=== PATIENT | female | born 1950 | race Caucasian/White ===

== ENCOUNTER → 2016-08-04 | Outpatient (REF) | payer BC ==
[~2016-08-04] MED LIST: ALBU17IN INH; BREO1INH INH; CHLO125TA PO; ESTR1TAB PO; IPRASOL4 INH; LOSA100T36 PO; MELO7.5S PO; OMEP40CA2 PO; REFR0.5D8 OU; SODI5OPD OU
[2016-08-04 18:54] LABS: CREATININE FOR GFR 1.1 MG/DL (0.55-1.02)
[2016-08-04 18:55] LABS: ALBUMIN 4.2 GM/DL (3.2-5.2); ALBUMIN/GLOBULIN RATIO 1.17 (1.00-1.93); BILIRUBIN,TOTAL 0.2 MG/DL (0.2-1.0); CALCIUM LEVEL 9.4 MG/DL (8.8-10.2); GLOMERULAR FILTRATION RATE 53.4 (>45); POTASSIUM SERUM 3.9 MEQ/L (3.5-5.1); TOTAL PROTEIN 7.8 GM/DL (6.4-8.2)
[2016-08-04 19:36] LABS: BASO % 0.2 % (0.0-1.0); EOS % 0.2 % (0.0-3.0); LARGE UNSTAINED CELL # 0.2 K/mm3 (0.0-0.4); LARGE UNSTAINED CELL % 2.5 % (0.0-4.0); LYMPH # 1.4 K/mm3 (1.5-4.5); LYMPH % 20.7 % (24.0-44.0); MEAN CORPUSCULAR HEMOGLOBIN 23.9 pg (27.0-33.0); MEAN CORPUSCULAR HGB CONC 30.3 g/dl (32.0-36.5); MEAN CORPUSCULAR VOLUME 78.9 fl (80.0-96.0); MONO # 0.4 K/mm3 (0.0-0.8); NEUTROPHILS # 4.7 K/mm3 (1.8-7.7); NEUTROPHILS % 70.4 % (36.0-66.0); PLATELET COUNT, AUTOMATED 316 k/mm3 (150-450); RED CELL DISTRIBUTION WIDTH 15.4 % (11.5-14.5)
[2016-08-04 19:37] LABS: WHITE BLOOD COUNT 6.6 K/mm3 (4.0-10.0)
== END ==
LOC: M SFHCPLAZ 11:40
PROVIDERS: ATTEND Nurse Practitioner Family
DX: D50.9 Iron deficiency anemia, unspecified (principal); K21.9 Gastro-esophageal reflux disease without esophagitis; I10 Essential (primary) hypertension

== ENCOUNTER → 2016-11-03 | Outpatient (REF) | payer OTHER ==
[2016-11-03 17:43] LABS: CALCIUM LEVEL 9.6 MG/DL (8.8-10.2); CREATININE FOR GFR 1.09 MG/DL (0.55-1.02); GLOMERULAR FILTRATION RATE 53.8 (>45); PERCENT SATURATION 5.9 % (13.2-37.4); POTASSIUM SERUM 3.6 MEQ/L (3.5-5.1)
[2016-11-03 19:00] LABS: BASO % 0.2 % (0.0-1.0); LARGE UNSTAINED CELL # 0.2 K/mm3 (0.0-0.4); LARGE UNSTAINED CELL % 2.5 % (0.0-4.0); LYMPH # 1.5 K/mm3 (1.5-4.5); LYMPH % 20.9 % (24.0-44.0); MEAN CORPUSCULAR HEMOGLOBIN 24.7 pg (27.0-33.0); MEAN CORPUSCULAR HGB CONC 31.4 g/dl (32.0-36.5); MEAN CORPUSCULAR VOLUME 78.6 fl (80.0-96.0); MONO # 0.4 K/mm3 (0.0-0.8); NEUTROPHILS # 5.1 K/mm3 (1.8-7.7); NEUTROPHILS % 71.3 % (36.0-66.0); PLATELET COUNT, AUTOMATED 312 k/mm3 (150-450); RED CELL DISTRIBUTION WIDTH 16.1 % (11.5-14.5); WHITE BLOOD COUNT 7.2 K/mm3 (4.0-10.0)
== END ==
LOC: M SFHCPLAZ 11:12
PROVIDERS: ATTEND Physician Assistant Medical
DX: D50.9 Iron deficiency anemia, unspecified (principal); I10 Essential (primary) hypertension

== ENCOUNTER → 2017-02-09 | Outpatient (REF) | payer OTHER ==
[2017-02-09 17:14] LABS: ALBUMIN/GLOBULIN RATIO 1.21 (1.00-1.93); ALKALINE PHOSPHATASE 57 U/L (45-117); ALT/SGPT 14 U/L (12-78); ANION GAP 8 MEQ/L (8-16); AST/SGOT 8 U/L (15-37); BILIRUBIN,TOTAL 0.2 MG/DL (0.2-1.0); BLOOD UREA NITROGEN 19 MG/DL (7-18); CALCIUM LEVEL 9.4 MG/DL (8.8-10.2); CARBON DIOXIDE LEVEL 25 MEQ/L (21-32); CHLORIDE LEVEL 108 MEQ/L (98-107); CHOLESTEROL LEVEL 194 MG/DL (<200); CREATININE FOR GFR 0.84 MG/DL (0.55-1.02); GLOMERULAR FILTRATION RATE > 60.0 (>45); GLUCOSE, FASTING 80 MG/DL (80-110); POTASSIUM SERUM 4.1 MEQ/L (3.5-5.1); SODIUM LEVEL 141 MEQ/L (136-145); TOTAL PROTEIN 7.3 GM/DL (6.4-8.2); TRIGLYCERIDES LEVEL 122 MG/DL (<150)
[2017-02-09 19:01] LABS: ADD MANUAL DIFFER YES; MEAN CORPUSCULAR HEMOGLOBIN 25.4 pg (27.0-33.0); MEAN CORPUSCULAR HGB CONC 31.7 g/dl (32.0-36.5); PLATELET COUNT, AUTOMATED 302 k/mm3 (150-450); RED CELL DISTRIBUTION WIDTH 15.6 % (11.5-14.5); WHITE BLOOD COUNT 5.7 K/mm3 (4.0-10.0)
[2017-02-09 23:08] LABS: ANISOCYTOSIS 1+; HYPOCHROMASIA 1+
== END ==
LOC: M SFHCPLAZ 11:50
PROVIDERS: ATTEND Nurse Practitioner Family
DX: D50.9 Iron deficiency anemia, unspecified (principal); I10 Essential (primary) hypertension

== ENCOUNTER → 2017-09-19 | Outpatient (REF) | payer MEDICARE ==
[2017-09-19 18:23] LABS: CREATININE, URINE 99.3 MG/DL
[2017-09-19 18:32] LABS: HEMATOCRIT 37.6 % (36.0-47.0); HEMOGLOBIN 11.1 g/dl (12.0-15.5); IMMATURE GRANULOCYTE % 0.2 % (0-3.0); LYMPH # 1.8 10^3/uL (1.5-4.5); LYMPH % 21.7 % (24.0-44.0); MEAN CORPUSCULAR HEMOGLOBIN 21.6 pg (27.0-33.0); MEAN CORPUSCULAR HGB CONC 29.5 g/dl (32.0-36.5); MEAN CORPUSCULAR VOLUME 73.3 fl (80.0-96.0); MONO # 0.6 10^3/uL (0.0-0.8); MONO % 7.3 % (0.0-5.0); NEUTROPHILS % 70.8 % (36.0-66.0); PLATELET COUNT, AUTOMATED 326 10^3/uL (150-450); RED BLOOD COUNT 5.13 10^6/uL (4.00-5.40); RED CELL DISTRIBUTION WIDTH 19.1 % (11.5-14.5); WHITE BLOOD COUNT 8.5 10^3/uL (4.0-10.0)
[2017-09-19 18:34] LABS: ALBUMIN 4.2 GM/DL (3.2-5.2); ALBUMIN/GLOBULIN RATIO 1.08 (1.00-1.93); ALKALINE PHOSPHATASE 84 U/L (45-117); ALT/SGPT 16 U/L (12-78); ANION GAP 9 MEQ/L (8-16); AST/SGOT 13 U/L (7-37); BILIRUBIN,TOTAL 0.2 MG/DL (0.2-1.0); BLOOD UREA NITROGEN 19 MG/DL (7-18); CALCIUM LEVEL 9.4 MG/DL (8.8-10.2); CARBON DIOXIDE LEVEL 28 MEQ/L (21-32); CHLORIDE LEVEL 102 MEQ/L (98-107); CHOLESTEROL LEVEL 232 MG/DL (<200); CHOLESTEROL RISK RATIO 4.377 (<5); CREATININE FOR GFR 0.81 MG/DL (0.55-1.30); GLOMERULAR FILTRATION RATE > 60.0 (>45); GLUCOSE, FASTING 77 MG/DL (70-100); HDL CHOLESTEROL 53 MG/DL (>40); LDL CHOLESTEROL 141.2 MG/DL (<100); NON-HDL-C 179 MG/DL; SODIUM LEVEL 139 MEQ/L (136-145); TOTAL PROTEIN 8.1 GM/DL (6.4-8.2); TRIGLYCERIDES LEVEL 189 MG/DL (<150)
[2017-09-19 18:38] LABS: IRON (FE) 27 UG/DL (50-170)
[2017-09-19 18:38] LABS: FREE T4 0.83 NG/DL (0.76-1.46); THYROID STIMULATING HORMONE 0.887 uIU/ML (0.358-3.740)
== END ==
LOC: M SFHCCLAY 12:33
DX: D50.9 Iron deficiency anemia, unspecified (principal); I10 Essential (primary) hypertension
CPT/HCPCS: 83540

== ENCOUNTER → 2018-09-13 | Outpatient (REF) | payer MEDICARE ==
[~2018-09-13] MED LIST changes: +IPRA0.00 INH; -IPRASOL4 INH; -LOSA100T36 PO; +LOSA100T50 PO
[2018-09-13 20:03] LABS: ALBUMIN 4.2 GM/DL (3.2-5.2); ALT/SGPT 12 U/L (12-78); BILIRUBIN,TOTAL 0.2 MG/DL (0.2-1.0); BLOOD UREA NITROGEN 13 MG/DL (7-18); CARBON DIOXIDE LEVEL 27 MEQ/L (21-32); CHLORIDE LEVEL 107 MEQ/L (98-107); CHOLESTEROL LEVEL 223 MG/DL (<200); CHOLESTEROL RISK RATIO 3.982 (<5); CREATININE FOR GFR 0.83 MG/DL (0.55-1.30); FREE T4 0.96 NG/DL (0.76-1.46); GLOMERULAR FILTRATION RATE > 60.0 (>45); GLUCOSE, FASTING 87 MG/DL (70-100); HDL CHOLESTEROL 56 MG/DL (>40); LDL CHOLESTEROL 139.6 MG/DL (<100); NON-HDL-C 167 MG/DL; POTASSIUM SERUM 3.8 MEQ/L (3.5-5.1); SODIUM LEVEL 139 MEQ/L (136-145); TOTAL PROTEIN 7.7 GM/DL (6.4-8.2); TRIGLYCERIDES LEVEL 137 MG/DL (<150)
[2018-09-13 20:20] LABS: BASO % 0.2 % (0.0-1.0); HEMATOCRIT 35.2 % (36.0-47.0); LYMPH % 10.6 % (24.0-44.0); MEAN CORPUSCULAR HGB CONC 28.4 g/dl (32.0-36.5); MEAN CORPUSCULAR VOLUME 70.5 fl (80.0-96.0); MONO # 0.5 10^3/uL (0.0-0.8); MONO % 5.7 % (0.0-5.0); NEUTROPHILS # 7.8 10^3/uL (1.8-7.7); NEUTROPHILS % 83.2 % (36.0-66.0); PLATELET COUNT, AUTOMATED 346 10^3/uL (150-450); RED BLOOD COUNT 4.99 10^6/uL (4.00-5.40); WHITE BLOOD COUNT 9.4 10^3/uL (4.0-10.0)
== END ==
LOC: M SFHCLERA 11:34
PROVIDERS: ATTEND Nurse Practitioner Family
DX: D50.9 Iron deficiency anemia, unspecified (principal); I10 Essential (primary) hypertension

== ENCOUNTER → 2019-11-08 | Outpatient (REF) | payer MEDICARE ==
[~2019-11-08] MED LIST changes: -OMEP40CA2 PO; +OMEP40CA97 PO
[2019-11-08 16:23] LABS: HEMATOCRIT 32.9 % (36.0-47.0); HEMOGLOBIN 9.5 g/dl (12.0-15.5); LYMPH # 1.2 10^3/uL (1.5-5.0); LYMPH % 19.2 % (24.0-44.0); MEAN CORPUSCULAR HEMOGLOBIN 20.1 pg (27.0-33.0); MEAN CORPUSCULAR HGB CONC 28.9 g/dl (32.0-36.5); MEAN CORPUSCULAR VOLUME 69.7 fl (80.0-96.0); MONO # 0.5 10^3/uL (0.0-0.8); MONO % 7.2 % (0.0-5.0); NEUTROPHILS # 4.6 10^3/uL (1.5-8.5); NEUTROPHILS % 73.4 % (36.0-66.0); PLATELET COUNT, AUTOMATED 352 10^3/uL (150-450); RED BLOOD COUNT 4.72 10^6/uL (4.00-5.40); WHITE BLOOD COUNT 6.3 10^3/uL (4.0-10.0)
[2019-11-08 16:49] LABS: ALBUMIN 3.9 GM/DL (3.2-5.2); ALT/SGPT 13 U/L (12-78); BILIRUBIN,TOTAL 0.4 MG/DL (0.2-1.0); BLOOD UREA NITROGEN 14 MG/DL (7-18); CALCIUM LEVEL 9.6 MG/DL (8.8-10.2); CARBON DIOXIDE LEVEL 24 MEQ/L (21-32); CHLORIDE LEVEL 106 MEQ/L (98-107); CHOLESTEROL LEVEL 188 MG/DL (<200); CHOLESTEROL RISK RATIO 3.298 (<5); CREATININE FOR GFR 0.74 MG/DL (0.55-1.30); FREE T4 0.94 NG/DL (0.76-1.46); GLOMERULAR FILTRATION RATE > 60.0 (>45); GLUCOSE, FASTING 94 MG/DL (70-100); HDL CHOLESTEROL 57 MG/DL (>40); IRON (FE) 14 UG/DL (50-170); LDL CHOLESTEROL 110 MG/DL (<100); NON-HDL-C 131 MG/DL; POTASSIUM SERUM 3.9 MEQ/L (3.5-5.1); SODIUM LEVEL 137 MEQ/L (136-145); THYROID STIMULATING HORMONE 0.548 uIU/ML (0.358-3.740); TOTAL PROTEIN 7.5 GM/DL (6.4-8.2); TRIGLYCERIDES LEVEL 103 MG/DL (<150)
== END ==
LOC: M SFHCLERA 13:06
PROVIDERS: ATTEND Nurse Practitioner Family
DX: K21.9 Gastro-esophageal reflux disease without esophagitis (principal); D50.9 Iron deficiency anemia, unspecified; I10 Essential (primary) hypertension; M25.551 Pain in right hip; J44.9 Chronic obstructive pulmonary disease, unspecified; R51 Headache; K59.00 Constipation, unspecified; J30.9 Allergic rhinitis, unspecified; H53.9 Unspecified visual disturbance; Z12.11 Encounter for screening for malignant neoplasm of colon; I83.813 Varicose veins of bilateral lower extremities with pain; Z13.89 Encounter for screening for other disorder

== ENCOUNTER → 2020-02-19 | Outpatient (REF) | payer MEDICARE ==
[2020-02-19 16:41] LABS: BASO % 0.1 % (0.0-1.0); HEMATOCRIT 35.5 % (36.0-47.0); HEMOGLOBIN 10.1 g/dl (12.0-15.5); LYMPH # 1.1 10^3/uL (1.5-5.0); LYMPH % 11.9 % (24.0-44.0); MEAN CORPUSCULAR HEMOGLOBIN 20.7 pg (27.0-33.0); MEAN CORPUSCULAR HGB CONC 28.5 g/dl (32.0-36.5); MEAN CORPUSCULAR VOLUME 72.7 fl (80.0-96.0); MONO # 0.7 10^3/uL (0.0-0.8); NEUTROPHILS # 7.5 10^3/uL (1.5-8.5); NEUTROPHILS % 80.5 % (36.0-66.0); PLATELET COUNT, AUTOMATED 297 10^3/uL (150-450); RED BLOOD COUNT 4.88 10^6/uL (4.00-5.40); WHITE BLOOD COUNT 9.3 10^3/uL (4.0-10.0)
[2020-02-19 17:02] LABS: ALT/SGPT 13 U/L (12-78); BILIRUBIN,TOTAL 0.2 MG/DL (0.2-1.0); BLOOD UREA NITROGEN 14 MG/DL (7-18); CALCIUM LEVEL 9.4 MG/DL (8.8-10.2); CARBON DIOXIDE LEVEL 26 MEQ/L (21-32); CHLORIDE LEVEL 106 MEQ/L (98-107); GLOMERULAR FILTRATION RATE > 60.0 (>45); GLUCOSE, FASTING 89 MG/DL (70-100); POTASSIUM SERUM 4.1 MEQ/L (3.5-5.1); SODIUM LEVEL 138 MEQ/L (136-145); TOTAL PROTEIN 7.7 GM/DL (6.4-8.2)
== END ==
LOC: M SFHCCLAY 11:13
PROVIDERS: ATTEND Nurse Practitioner Family
DX: R10.13 Epigastric pain (principal); R19.5 Other fecal abnormalities
CPT/HCPCS: 80053; 85025; G0463

== ENCOUNTER → 2021-01-15 | Outpatient (CLI) | payer MEDICARE ==
[~2021-01-15] MED LIST changes: +OMEP40CA4 PO; -OMEP40CA97 PO
[2021-01-16 19:07] LABS: ANTINUCLEAR ANTIBODIES DIRECT Negative (Negative)
== END ==
LOC: M PLALAB 10:19
PROVIDERS: ATTEND Psychiatry & Neurology Neurology
DX: R51.9 Headache, unspecified (principal)

== ENCOUNTER → 2022-01-12 | Outpatient (CLI) | payer MEDICARE ==
[~2022-01-12] MED LIST changes: +LOSA100T45 PO; -LOSA100T50 PO
== END ==
LOC: M CLY 11:33
PROVIDERS: ATTEND Nurse Practitioner Family
DX: M53.3 Sacrococcygeal disorders, not elsewhere classified (principal)

== ENCOUNTER → 2022-04-06 | Outpatient (REF) | payer MEDICARE ==
[2022-04-06 19:20] LABS: BASO % 0.2 % (0.0-1.0); HEMOGLOBIN 9.4 g/dl (12.0-15.5); LYMPH # 1.5 10^3/uL (1.5-5.0); MEAN CORPUSCULAR HEMOGLOBIN 20.5 pg (27.0-33.0); MEAN CORPUSCULAR HGB CONC 27.6 g/dl (32.0-36.5); MEAN CORPUSCULAR VOLUME 74.2 fl (80.0-96.0); MONO # 0.9 10^3/uL (0.0-0.8); MONO % 7.4 % (2.0-8.0); NEUTROPHILS # 9.3 10^3/uL (1.5-8.5); NEUTROPHILS % 79.1 % (36.0-66.0); PLATELET COUNT, AUTOMATED 355 10^3/uL (150-450); RED BLOOD COUNT 4.58 10^6/uL (4.00-5.40); WHITE BLOOD COUNT 11.7 10^3/uL (4.0-10.0)
[2022-04-06 19:50] LABS: ALBUMIN 4.2 G/DL (3.2-5.2); BILIRUBIN,TOTAL 0.2 MG/DL (0.3-1.2); CALCIUM LEVEL 9.9 MG/DL (8.3-10.6); CHOLESTEROL RISK RATIO 3.46 (<5); CREATININE FOR GFR 1.31 MG/DL (0.55-1.30); FREE T4 1.11 NG/DL (0.89-1.76); GLOMERULAR FILTRATION RATE 42.9 (>45); HDL CHOLESTEROL 52.3 MG/DL (>40); LDL CHOLESTEROL 105.3 MG/DL (<100); THYROID STIMULATING HORMONE 1.404 uIU/ML (0.55-4.78); TOTAL PROTEIN 7.3 G/DL (5.7-8.2)
[2022-04-06 19:54] LABS: CREATININE, URINE 211.1 MG/DL; MAU/CREAT RATIO 50.6 MCG/MG (0.0-30.0)
== END ==
LOC: M SFHCCLAY 13:32
PROVIDERS: ATTEND Nurse Practitioner Family
DX: I10 Essential (primary) hypertension (principal); K21.9 Gastro-esophageal reflux disease without esophagitis; J44.9 Chronic obstructive pulmonary disease, unspecified; D50.9 Iron deficiency anemia, unspecified; M25.551 Pain in right hip; R51.9 Headache, unspecified; K59.00 Constipation, unspecified; J30.9 Allergic rhinitis, unspecified; H53.9 Unspecified visual disturbance; Z12.11 Encounter for screening for malignant neoplasm of colon; I83.813 Varicose veins of bilateral lower extremities with pain; Z13.89 Encounter for screening for other disorder; M54.2 Cervicalgia

== ENCOUNTER → 2022-04-12 | Outpatient (REF) | payer MEDICARE ==
[2022-04-12 19:02] LABS: BLOOD UREA NITROGEN 14 MG/DL (9-23); CALCIUM LEVEL 9.1 MG/DL (8.3-10.6); CARBON DIOXIDE LEVEL 24 MMOL/L (20-31); CHLORIDE LEVEL 105 MMOL/L (98-107); CREATININE FOR GFR 0.87 MG/DL (0.55-1.30); GLOMERULAR FILTRATION RATE > 60.0 (>45); GLUCOSE, FASTING 92 MG/DL (74-106); POTASSIUM SERUM 4.1 MMOL/L (3.5-5.1); SODIUM LEVEL 140 MMOL/L (136-145)
== END ==
LOC: M SFHCCLAY 10:52
PROVIDERS: ATTEND Nurse Practitioner Family
DX: I10 Essential (primary) hypertension (principal)

== ENCOUNTER → 2022-04-29 | Outpatient (REF) | payer MEDICARE | LOC: M LAB REF 11:27 | PROVIDERS: ATTEND Physician Assistant Medical | DX: R19.4 Change in bowel habit (principal) ==

== ENCOUNTER → 2022-06-20 | Outpatient (CLI) | payer MEDICARE | LOC: M LABSMTC 10:30 | PROVIDERS: ATTEND Anesthesiology | DX: Z01.812 Encounter for preprocedural laboratory examination (principal); Z11.52 Encounter for screening for COVID-19 ==

== ENCOUNTER 2022-06-24 10:16 | Day surgery (SDC) | payer MEDICARE ==
[~2022-06-24] VITALS: Ht 152.4 cm; Wt 69.3 kg
[~2022-06-24 10:16] MED LIST changes: +ALBU8.5H INH; +AMIT25TA17 PO; +AMLO1TAB25 PO; +CETI-24 PO; +ECOT81TA5 PO; +FISH120016 PO; +GABA-283 PO; +LOSA50TA28 PO; +MECL-136 PO; +METO50TA7 PO; +NS 1,000 ML IV ONE; +PANT40TA29 PO; +PERF20NE2 INH; +YUPE175S IN
[2022-06-24] MEDS ORDERED: GLYCOPYRROLATE INJ 0.2 MG/ML 2 ML VIAL As Ordered ONE (11:43)
[2022-06-24] MEDS ORDERED: propofoL 200 MG/20 ML VIAL As Ordered ONE ×3 (11:43→12:21)
[2022-06-24] MEDS ORDERED: LIDOCAINE 2% 100MG/5ML SDV (FOR ANES.) As Ordered ONE (11:43)
[2022-06-24 12:55] VITALS: BP 132/94
== END 2022-06-24 13:33 | disposition home or self-care (01) ==
LOC: M OPP 10:16
PROVIDERS: ATTEND Internal Medicine Gastroenterology
DX: Q43.8 Other specified congenital malformations of intestine (principal); K64.8 Other hemorrhoids; D50.9 Iron deficiency anemia, unspecified; K44.9 Diaphragmatic hernia without obstruction or gangrene; K25.9 Gastric ulcer, unspecified as acute or chronic, without hemorrhage or perforation; K31.89 Other diseases of stomach and duodenum; Z79.51 Long term (current) use of inhaled steroids; Z79.52 Long term (current) use of systemic steroids; Z79.82 Long term (current) use of aspirin; Z79.899 Other long term (current) drug therapy; I10 Essential (primary) hypertension; E78.00 Pure hypercholesterolemia, unspecified; J44.9 Chronic obstructive pulmonary disease, unspecified; J45.909 Unspecified asthma, uncomplicated; Z86.73 Personal history of transient ischemic attack (TIA), and cerebral infarction without residual deficits; Z87.891 Personal history of nicotine dependence; Z80.1 Family history of malignant neoplasm of trachea, bronchus and lung

== ENCOUNTER → 2022-07-12 | Outpatient (CLI) | payer MEDICARE ==
[~2022-07-12] MED LIST changes: -NS 1,000 ML IV ONE
[2022-07-12 16:34] LABS: IRON (FE) 14 UG/DL (50-170)
[2022-07-12 16:35] LABS: PERCENT SATURATION 3.4 % (13.2-45.0); TOTAL IRON BINDING CAPACITY 413 UG/DL (250-425)
[2022-07-12 16:41] LABS: HEMATOCRIT 33.7 % (36.0-47.0); HEMOGLOBIN 9.5 g/dl (12.0-15.5); MEAN CORPUSCULAR HGB CONC 28.2 g/dl (32.0-36.5); MEAN CORPUSCULAR VOLUME 74.4 fl (80.0-96.0); PLATELET COUNT, AUTOMATED 283 10^3/uL (150-450); RED BLOOD COUNT 4.53 10^6/uL (4.00-5.40); WHITE BLOOD COUNT 8.4 10^3/uL (4.0-10.0)
[2022-07-12 17:17] LABS: ALBUMIN 3.9 G/DL (3.2-5.2); ALKALINE PHOSPHATASE 75 U/L (46-116); ALT/SGPT 10 U/L (7.0-40); AST/SGOT 12 U/L (<34); BILIRUBIN,TOTAL 0.3 MG/DL (0.3-1.2); BLOOD UREA NITROGEN 10 MG/DL (9-23); CALCIUM LEVEL 8.8 MG/DL (8.3-10.6); CARBON DIOXIDE LEVEL 26 MMOL/L (20-31); CHLORIDE LEVEL 105 MMOL/L (98-107); GLUCOSE, FASTING 82 MG/DL (74-106); POTASSIUM SERUM 4.5 MMOL/L (3.5-5.1); SODIUM LEVEL 138 MMOL/L (136-145); TOTAL PROTEIN 7.2 G/DL (5.7-8.2)
[2022-07-12 20:39] LABS: GLOMERULAR FILTRATION RATE > 60.0 (>45)
== END ==
LOC: M PLALAB 11:14
PROVIDERS: ATTEND Physician Assistant Medical
DX: D50.9 Iron deficiency anemia, unspecified (principal); K21.9 Gastro-esophageal reflux disease without esophagitis

== ENCOUNTER 2022-07-26 11:20 | Outpatient (CLI) | payer MEDICARE ==
[2022-07-26] MEDS ORDERED: IRON SUCROSE 25 MG in NS 23.75 ML IV ONE (11:30)
[2022-07-26] MEDS ORDERED: IRON SUCROSE 475 MG in NS 250 ML IV ONE (11:30)
== END 2022-07-26 16:35 | disposition home or self-care (01) ==
LOC: M INFU 11:20
PROVIDERS: ATTEND Nurse Practitioner Family
DX: D50.9 Iron deficiency anemia, unspecified (principal)
CPT/HCPCS: 96365; 96366; J1756

== ENCOUNTER → 2022-09-22 | Outpatient (CLI) | payer MEDICARE ==
[~2022-09-22] MED LIST changes: +E-Z-GAS II EFFERVESCENT PACKET (SODIUM BICARB./CITRIC ACID/SIMETHICONE) As Ordered ONE; +E-Z-HD 98% w/w 340GM SUSP BTL As Ordered ONE; +E-Z-PAQUE 96% w/w SUSP 176GM BTL As Ordered ONE; -LOSA100T45 PO; +LOSA100T46 PO; +PRED20TA; +SODI1SOL4 OU; -SODI5OPD OU
== END ==
LOC: M RAD 08:13
PROVIDERS: ATTEND Surgery
DX: K25.7 Chronic gastric ulcer without hemorrhage or perforation (principal); K44.9 Diaphragmatic hernia without obstruction or gangrene

== ENCOUNTER → 2023-01-12 | Outpatient (CLI) | payer MEDICARE ==
[~2023-01-12] MED LIST changes: -AMIT25TA17 PO; +AMIT25TA19 PO; -E-Z-GAS II EFFERVESCENT PACKET (SODIUM BICARB./CITRIC ACID/SIMETHICONE) As Ordered ONE; -E-Z-HD 98% w/w 340GM SUSP BTL As Ordered ONE; -E-Z-PAQUE 96% w/w SUSP 176GM BTL As Ordered ONE; -GABA-283 PO; +GABA-284 PO
== END ==
LOC: M RAD 13:10
PROVIDERS: ATTEND Internal Medicine Pulmonary Disease
DX: R06.02 Shortness of breath (principal)

== ENCOUNTER → 2023-06-27 | Outpatient (REF) | payer MEDICARE ==
[~2023-06-27] MED LIST changes: +SIME80CH6
== END ==
LOC: M LAB REF 12:24
PROVIDERS: ATTEND Physician Assistant Medical
DX: R19.7 Diarrhea, unspecified (principal); R10.812 Left upper quadrant abdominal tenderness

== ENCOUNTER → 2023-08-17 | Outpatient (CLI) | payer MEDICARE ==
[~2023-08-17] MED LIST changes: +ALBU2.5V10 INH; +SUMA50TA2 PO
== END ==
LOC: M RAD 12:02
PROVIDERS: ATTEND Physician Assistant Medical
DX: R19.7 Diarrhea, unspecified (principal)

== ENCOUNTER → 2023-08-22 | Outpatient (REF) | payer MEDICARE ==
[~2023-08-22] MED LIST changes: -ALBU2.5V10 INH; -SUMA50TA2 PO
== END ==
LOC: M LAB REF 13:10
PROVIDERS: ATTEND Physician Assistant Medical
DX: R19.7 Diarrhea, unspecified (principal)

== ENCOUNTER 2023-08-25 12:02 | Outpatient (CLI) | payer MEDICARE ==
[~2023-08-25] VITALS: Ht 152.4 cm; Wt 69.5 kg
[2023-08-25 12:20] VITALS: BP 173/99; O2SAT 97
[2023-08-25] MEDS: IRON SUCROSE 200 MG in NS 100 ML OVER 1 HR IV ONE (12:33)
[2023-08-25 13:35] VITALS: BP 195/96; O2SAT 98
== END 2023-08-25 13:40 ==
LOC: M INFU 12:02
PROVIDERS: ATTEND Nurse Practitioner
DX: D50.9 Iron deficiency anemia, unspecified (principal)
CPT/HCPCS: 96365; J1756

== ENCOUNTER 2023-09-01 09:30 | Outpatient (CLI) | payer MEDICARE ==
[2023-09-01 09:30] VITALS: BP 164/79; O2SAT 100
[2023-09-01] MEDS: IRON SUCROSE 200 MG in NS 100 ML OVER 1 HR IV ONE (09:35)
[2023-09-01 10:40] VITALS: BP 160/90; O2SAT 96
== END 2023-09-01 10:40 | disposition home or self-care (01) ==
LOC: M INFU 09:30
PROVIDERS: ATTEND Nurse Practitioner
DX: D50.9 Iron deficiency anemia, unspecified (principal)
CPT/HCPCS: 96365; J1756

== ENCOUNTER 2023-09-08 12:00 | Outpatient (CLI) | payer MEDICARE ==
[2023-09-08 11:55] VITALS: BP 160/93; O2SAT 95
[2023-09-08] MEDS: IRON SUCROSE 200 MG in NS 100 ML OVER 1 HR IV ONE (12:10)
[2023-09-08 13:20] VITALS: BP 177/76; O2SAT 100
== END 2023-09-08 13:20 | disposition home or self-care (01) ==
LOC: M INFU 12:00
PROVIDERS: ATTEND Nurse Practitioner
DX: E61.1 Iron deficiency (principal)
CPT/HCPCS: 96365; J1756

== ENCOUNTER 2023-09-15 09:50 | Outpatient (CLI) | payer MEDICARE ==
[2023-09-15 09:50] VITALS: BP 170/90; O2SAT 97
[2023-09-15] MEDS: IRON SUCROSE 200 MG in NS 100 ML OVER 1 HR IV ONE (10:01)
[2023-09-15 11:00] VITALS: BP 152/68; O2SAT 96
== END 2023-09-15 11:15 ==
LOC: M INFU 09:50
PROVIDERS: ATTEND Nurse Practitioner
DX: D50.9 Iron deficiency anemia, unspecified (principal); Z12.31 Encounter for screening mammogram for malignant neoplasm of breast
CPT/HCPCS: 77063; 77067; 96365; J1756

== ENCOUNTER → 2023-09-15 | Outpatient (CLI) | payer MEDICARE | LOC: M WHC 13:19 | PROVIDERS: ATTEND Family Medicine | DX: Z12.31 Encounter for screening mammogram for malignant neoplasm of breast (principal) ==

== ENCOUNTER → 2023-09-20 | Outpatient (CLI) | payer MEDICARE | LOC: M RAD 09:05 | PROVIDERS: ATTEND Physician Assistant Medical | DX: R10.12 Left upper quadrant pain (principal); K86.81 Exocrine pancreatic insufficiency; R19.7 Diarrhea, unspecified ==

== ENCOUNTER 2023-09-22 09:40 | Outpatient (CLI) | payer MEDICARE ==
[2023-09-22] MEDS: IRON SUCROSE 200 MG in NS 100 ML OVER 1 HR IV ONE (09:34)
[2023-09-22 09:37] VITALS: BP 171/90; O2SAT 96
[2023-09-22 10:45] VITALS: BP 151/98; O2SAT 100
== END 2023-09-22 10:45 ==
LOC: M INFU 09:40
PROVIDERS: ATTEND Nurse Practitioner
DX: D50.9 Iron deficiency anemia, unspecified (principal)
CPT/HCPCS: 96365; J1756

== ENCOUNTER → 2024-01-25 | Outpatient (CLI) | payer MEDICARE ==
[~2024-01-25] MED LIST changes: +ALBU2.5V10 INH; +SUMA50TA2 PO
[2024-01-25 18:07] LABS: CHOLESTEROL RISK RATIO 3.32 (<5); HDL CHOLESTEROL 49.6 MG/DL (>40); LDL CHOLESTEROL 90.4 MG/DL (<100); NON-HDL-C 115.4 MG/DL
== END ==
LOC: M LRY 08:56
PROVIDERS: ATTEND Physician Assistant
DX: Z13.220 Encounter for screening for lipoid disorders (principal); Z79.899 Other long term (current) drug therapy

== ENCOUNTER → 2024-02-02 | Outpatient (CLI) | payer MEDICARE | LOC: M RAD 12:10 | PROVIDERS: ATTEND Physician Assistant Medical | DX: R10.12 Left upper quadrant pain (principal); K59.00 Constipation, unspecified; R14.0 Abdominal distension (gaseous) ==

== ENCOUNTER 2024-03-09 04:07 | Inpatient (IN) | payer MEDICARE ==
[~2024-03-09] VITALS: Ht 152.4 cm; Wt 70.2 kg
[2024-03-09] VITALS (8 sets, daily range): BP systolic 144–176; BP diastolic 74–110; TEMP 97–98; O2SAT 88–94
[~2024-03-09 04:07] MED LIST changes: -SIME80CH6; +SIME80CH6 PO
[2024-03-09] MEDS: methylPREDNISolone 125MG 2ML VIAL IV ONE (04:48)
[2024-03-09 04:53] LABS: BASO % 0.1 % (0.0-1.0); HEMATOCRIT 39.5 % (36.0-47.0); HEMOGLOBIN 12.2 g/dl (12.0-15.5); LYMPH # 0.5 10^3/uL (1.5-5.0); LYMPH % 3.2 % (24.0-44.0); MEAN CORPUSCULAR HEMOGLOBIN 25.8 pg (27.0-33.0); MEAN CORPUSCULAR HGB CONC 30.9 g/dl (32.0-36.5); MEAN CORPUSCULAR VOLUME 83.5 fl (80.0-96.0); MONO # 0.1 10^3/uL (0.0-0.8); MONO % 0.9 % (2.0-8.0); NEUTROPHILS # 15.2 10^3/uL (1.5-8.5); NEUTROPHILS % 95.4 % (36.0-66.0); PLATELET COUNT, AUTOMATED 307 10^3/uL (150-450); RED BLOOD COUNT 4.73 10^6/uL (4.00-5.40); WHITE BLOOD COUNT 15.9 10^3/uL (4.0-10.0)
[2024-03-09] MEDS: LEVALBUTEROL 1.25MG 0.5ML CONCENTRATE NEB NEB ONE ×4 (04:55→08:04)
[2024-03-09 05:15] LABS: ALBUMIN 3.4 G/DL (3.2-5.2); ALKALINE PHOSPHATASE 116 U/L (46-116); ALT/SGPT 20 U/L (7.0-40); AST/SGOT 13 U/L (<34); BILIRUBIN,DIRECT < 0.1 MG/DL (<0.4); BILIRUBIN,TOTAL 0.2 MG/DL (0.3-1.2); BLOOD UREA NITROGEN 14 MG/DL (9-23); CALCIUM LEVEL 9.4 MG/DL (8.3-10.6); CARBON DIOXIDE LEVEL 22 MMOL/L (20-31); CHLORIDE LEVEL 106 MMOL/L (98-107); CREATININE FOR GFR 0.58 MG/DL (0.55-1.30); GLOMERULAR FILTRATION RATE > 60.0 (>39); GLUCOSE, FASTING 199 MG/DL (74-106); POTASSIUM SERUM 4.1 MMOL/L (3.5-5.1); SODIUM LEVEL 137 MMOL/L (136-145); TOTAL PROTEIN 6.8 G/DL (5.7-8.2)
[2024-03-09 06:51] LABS: CK-MB VALUE MASS 1.8 NG/ML (<3.6)
[2024-03-09 06:52] LABS: CPK CREATINE PHOSPHOKINASE 61 U/L (34-145); MB/CK RELATIVE INDEX 2.95 (< OR =4)
[2024-03-09] MEDS ORDERED: ISOVUE-370 76% 100ML VIAL As Ordered ONE (07:10)
[2024-03-09] MEDS ORDERED: LEVALBUTEROL 1.25MG 0.5ML CONCENTRATE NEB INH PRN (10:20)
[2024-03-09] MEDS ORDERED: IPRATROPIUM 0.02% SOLN 0.5MG 2.5ML NEB INH PRN (10:20)
[2024-03-09] MEDS ORDERED: ONDANSETRON 4MG 2ML VIAL IV PRN (10:20)
[2024-03-09] MEDS: ACETAMINOPHEN 325 MG TAB PO ONE (10:36)
[2024-03-09] MEDS: DOXYCYCLINE HYCLATE 100MG TABLET PO SCH (11:20)
[2024-03-09] MEDS: methylPREDNISolone 125MG 2ML VIAL IV SCH (11:20)
[2024-03-09] MEDS: CETIRIZINE (ZyrTEC) 10 MG TAB PO ONE (11:20)
[2024-03-09] MEDS: NS 1,000 ML IV ONE (11:20)
[2024-03-09] MEDS: guaiFENesin ER TABLET 600 MG TAB PO SCH (11:20)
[2024-03-09] MEDS: FUROSEMIDE 40MG/4ML VIAL IV ONE (11:41)
[2024-03-09] MEDS ORDERED: methylPREDNISolone 125MG 2ML VIAL IV ONE ×2 (11:45→12:00)
[2024-03-09] MEDS: LEVALBUTEROL 1.25MG 0.5ML CONCENTRATE NEB INH SCH ×3 (11:56→20:23)
[2024-03-09] MEDS: FORMOTEROL FUMARATE 20 MCG/2 ML INHALATION SOLUTION (PERFOROMIST) INH SCH (11:56)
[2024-03-09] MEDS: IPRATROPIUM 0.02% SOLN 0.5MG 2.5ML NEB INH SCH ×3 (11:56→20:23)
[2024-03-09 11:57] LABS: ABG BASE EXCESS -0.8 (-2.0-2.0); ABG O2 SATURATION 96.8 % (95.0-99.0); ABG PARTIAL PRESSURE CO2 35.6 mmHg (35.0-45.0); ABG PARTIAL PRESSURE O2 86.7 mmHg (75.0-100.0); ABG STANDARD HCO3 23.8 MMOL/L. (22.0-26.0); ABG TOTAL CO2 24.1 MMOL/L (23.0-31.0); ABG pH (ARTERIAL) 7.429 UNITS (7.350-7.450)
[2024-03-09] MEDS: GLYCOPYRROLATE INJ 0.2 MG/ML 2 ML VIAL NEB SCH (11:57)
[2024-03-09] MEDS ORDERED: NS 1,000 ML IV SCH (12:00)
[2024-03-09] MEDS ORDERED: MED REC IN PROGRESS XX SCH (12:10)
[2024-03-09] MEDS: cefTRIAXone SOD 1 GM in DEXTROSE 5% (D5W) ADV/MINI-BAG 50 ML IV SCH (12:10)
[2024-03-09 12:31] LABS: CK-MB VALUE MASS 3.3 NG/ML (<3.6); MB/CK RELATIVE INDEX 4.45 (< OR =4)
[2024-03-09] MEDS: MAG SULF 1GM/100ML (MAG RUN) 1 GM in IV 1 EA IV ONE (12:40)
[2024-03-09] MEDS ORDERED: OMEP40CA5 PO (13:15)
[2024-03-09] MEDS ORDERED: SUCR1TAB56 PO (13:15)
[2024-03-09] MEDS ORDERED: HOME MED LIST COMPLETE! XX SCH (13:15)
[2024-03-09] MEDS ORDERED: TIZA2TA PO (13:15)
[2024-03-09] MEDS ORDERED: ACET-897 PO (13:15)
[2024-03-09 17:58] LABS: ABG BASE EXCESS 0.8 (-2.0-2.0); ABG HCO3 23.9 MMOL/L (22.0-26.0); ABG O2 SATURATION 96.1 % (95.0-99.0); ABG PARTIAL PRESSURE CO2 33.4 mmHg (35.0-45.0); ABG PARTIAL PRESSURE O2 79.8 mmHg (75.0-100.0); ABG STANDARD HCO3 25.2 MMOL/L. (22.0-26.0); ABG TOTAL CO2 24.9 MMOL/L (23.0-31.0); ABG pH (ARTERIAL) 7.472 UNITS (7.350-7.450)
[2024-03-09] MEDS ORDERED: RIZATRIPTAN BENZOATE 10 MG TAB PO PRN (18:40)
[2024-03-09] MEDS: KETOROLAC 30 MG/ML 1ML VIAL IV ONE (18:54)
[2024-03-09] MEDS: METOCLOPRAMIDE INJ 10MG/2ML VIAL IV ONE (18:54)
[2024-03-10] VITALS (23 sets, daily range): BP systolic 121–145; BP diastolic 60–88; TEMP 97.2–98.6; O2SAT 93–98
[2024-03-10] MEDS: LEVALBUTEROL 1.25MG 0.5ML CONCENTRATE NEB INH PRN (04:17)
[2024-03-10] MEDS: IPRATROPIUM 0.02% SOLN 0.5MG 2.5ML NEB INH PRN (04:17)
[2024-03-10 04:34] LABS: ABG BASE EXCESS 0.6 (-2.0-2.0); ABG HCO3 24.1 MMOL/L (22.0-26.0); ABG O2 SATURATION 98.8 % (95.0-99.0); ABG PARTIAL PRESSURE O2 147.6 mmHg (75.0-100.0); ABG STANDARD HCO3 25.1 MMOL/L. (22.0-26.0); ABG TOTAL CO2 25.2 MMOL/L (23.0-31.0); ABG pH (ARTERIAL) 7.456 UNITS (7.350-7.450)
[2024-03-10 05:38] LABS: BASO % 0.1 % (0.0-1.0); HEMATOCRIT 37.8 % (36.0-47.0); LYMPH # 0.6 10^3/uL (1.5-5.0); LYMPH % 2.5 % (24.0-44.0); MEAN CORPUSCULAR HGB CONC 31.7 g/dl (32.0-36.5); MEAN CORPUSCULAR VOLUME 81.8 fl (80.0-96.0); MONO # 0.3 10^3/uL (0.0-0.8); MONO % 1.3 % (2.0-8.0); NEUTROPHILS # 23.9 10^3/uL (1.5-8.5); NEUTROPHILS % 95.1 % (36.0-66.0); PLATELET COUNT, AUTOMATED 354 10^3/uL (150-450); RED BLOOD COUNT 4.62 10^6/uL (4.00-5.40); WHITE BLOOD COUNT 25.1 10^3/uL (4.0-10.0)
[2024-03-10 06:02] LABS: BLOOD UREA NITROGEN 23 MG/DL (9-23); CALCIUM LEVEL 9.8 MG/DL (8.3-10.6); CARBON DIOXIDE LEVEL 25 MMOL/L (20-31); CHLORIDE LEVEL 101 MMOL/L (98-107); CREATININE FOR GFR 0.77 MG/DL (0.55-1.30); GLOMERULAR FILTRATION RATE > 60.0 (>39); GLUCOSE, FASTING 153 MG/DL (74-106); POTASSIUM SERUM 3.7 MMOL/L (3.5-5.1); SODIUM LEVEL 136 MMOL/L (136-145)
[2024-03-10] MEDS: CETIRIZINE (ZyrTEC) 10 MG TAB PO SCH (09:10)
[2024-03-10] MEDS: ACETAMINOPHEN 325 MG TAB PO PRN (09:10)
[2024-03-10] MEDS: METOPROLOL TART 12.5 MG PER 1/2 TAB PO SCH (12:05)
[2024-03-10] MEDS ORDERED: SUMAtriptan SUCCINATE 25 MG TAB PO SCH (12:30)
[2024-03-10] MEDS: tiZANidine 4 MG TAB PO ONE (13:24)
[2024-03-11] VITALS (23 sets, daily range): BP systolic 127–169; BP diastolic 73–89; TEMP 97–97.9; O2SAT 94–99
[2024-03-11 07:09] LABS: BASO % 0.1 % (0.0-1.0); HEMATOCRIT 35.5 % (36.0-47.0); HEMOGLOBIN 11.4 g/dl (12.0-15.5); LYMPH # 0.4 10^3/uL (1.5-5.0); LYMPH % 1.3 % (24.0-44.0); MEAN CORPUSCULAR HEMOGLOBIN 26.3 pg (27.0-33.0); MEAN CORPUSCULAR HGB CONC 32.1 g/dl (32.0-36.5); MONO # 0.3 10^3/uL (0.0-0.8); NEUTROPHILS # 26.4 10^3/uL (1.5-8.5); NEUTROPHILS % 96.2 % (36.0-66.0); PLATELET COUNT, AUTOMATED 337 10^3/uL (150-450); RED BLOOD COUNT 4.33 10^6/uL (4.00-5.40); WHITE BLOOD COUNT 27.4 10^3/uL (4.0-10.0)
[2024-03-11 07:39] LABS: BLOOD UREA NITROGEN 35 MG/DL (9-23); CALCIUM LEVEL 9.2 MG/DL (8.3-10.6); CARBON DIOXIDE LEVEL 26 MMOL/L (20-31); CHLORIDE LEVEL 103 MMOL/L (98-107); CREATININE FOR GFR 0.78 MG/DL (0.55-1.30); GLOMERULAR FILTRATION RATE > 60.0 (>39); GLUCOSE, FASTING 137 MG/DL (74-106); POTASSIUM SERUM 4.4 MMOL/L (3.5-5.1); SODIUM LEVEL 134 MMOL/L (136-145)
[2024-03-11] MEDS ORDERED: ENTER DRUG NAME HERE (PATIENT'S OWN MED) PO PRN (08:25)
[2024-03-11] MEDS ORDERED: PILL CUTTER 1 EACH XX PRN (08:30)
[2024-03-11] MEDS: tiZANidine 4 MG TAB PO ONE (09:13)
[2024-03-11 10:54] LABS: PROCALCITONIN 0.07 ng/ml
[2024-03-11] MEDS: SUMAtriptan SUCCINATE 25 MG TAB PO ONE (10:59)
[2024-03-11] MEDS: ARTIFICIAL TEARS DROPS 15ML BTL (VISINE DRY RELIEF) OU SCH (11:00)
[2024-03-11] MEDS: SUMAtriptan SUCCINATE 25 MG TAB PO PRN (22:13)
[2024-03-12] VITALS (25 sets, daily range): BP systolic 134–176; BP diastolic 75–89; TEMP 97–97.9; O2SAT 94–99
[2024-03-12 07:16] LABS: BASO % 0.1 % (0.0-1.0); HEMATOCRIT 36.7 % (36.0-47.0); HEMOGLOBIN 11.6 g/dl (12.0-15.5); LYMPH # 0.3 10^3/uL (1.5-5.0); LYMPH % 2.1 % (24.0-44.0); MEAN CORPUSCULAR HEMOGLOBIN 25.9 pg (27.0-33.0); MEAN CORPUSCULAR HGB CONC 31.6 g/dl (32.0-36.5); MEAN CORPUSCULAR VOLUME 81.9 fl (80.0-96.0); MONO # 0.2 10^3/uL (0.0-0.8); MONO % 0.9 % (2.0-8.0); NEUTROPHILS # 15.2 10^3/uL (1.5-8.5); NEUTROPHILS % 95.7 % (36.0-66.0); PLATELET COUNT, AUTOMATED 352 10^3/uL (150-450); RED BLOOD COUNT 4.48 10^6/uL (4.00-5.40); WHITE BLOOD COUNT 15.8 10^3/uL (4.0-10.0)
[2024-03-12 07:45] LABS: BLOOD UREA NITROGEN 36 MG/DL (9-23); CALCIUM LEVEL 9.1 MG/DL (8.3-10.6); CARBON DIOXIDE LEVEL 28 MMOL/L (20-31); CHLORIDE LEVEL 104 MMOL/L (98-107); CREATININE FOR GFR 0.72 MG/DL (0.55-1.30); GLOMERULAR FILTRATION RATE > 60.0 (>39); GLUCOSE, FASTING 138 MG/DL (74-106); POTASSIUM SERUM 4.6 MMOL/L (3.5-5.1); SODIUM LEVEL 135 MMOL/L (136-145)
[2024-03-12] MEDS ORDERED: VARIBAR PUDDING 40% w/v 230ML TUBE As Ordered ONE (11:13)
[2024-03-12] MEDS ORDERED: E-Z-PAQUE 96% w/w SUSP 176GM BTL As Ordered ONE (11:13)
[2024-03-12] MEDS ORDERED: VARIBAR NECTAR 40% w/v 240ML SUSP BTL As Ordered ONE (11:13)
[2024-03-12] MEDS ORDERED: BARIUM SULFATE 700 MG TABLET (E-Z-DISK) As Ordered ONE (11:14)
[2024-03-13] VITALS (15 sets, daily range): BP systolic 130–174; BP diastolic 76–96; TEMP 96.9–98.4; O2SAT 89–100
[2024-03-13 06:45] LABS: BASO % 0.1 % (0.0-1.0); HEMATOCRIT 34.9 % (36.0-47.0); HEMOGLOBIN 11.2 g/dl (12.0-15.5); LYMPH # 0.3 10^3/uL (1.5-5.0); LYMPH % 3.1 % (24.0-44.0); MEAN CORPUSCULAR HEMOGLOBIN 26.3 pg (27.0-33.0); MEAN CORPUSCULAR HGB CONC 32.1 g/dl (32.0-36.5); MEAN CORPUSCULAR VOLUME 81.9 fl (80.0-96.0); MONO # 0.2 10^3/uL (0.0-0.8); MONO % 1.8 % (2.0-8.0); NEUTROPHILS # 8.7 10^3/uL (1.5-8.5); NEUTROPHILS % 93.1 % (36.0-66.0); PLATELET COUNT, AUTOMATED 309 10^3/uL (150-450); RED BLOOD COUNT 4.26 10^6/uL (4.00-5.40); WHITE BLOOD COUNT 9.3 10^3/uL (4.0-10.0)
[2024-03-13 07:09] LABS: C REACTIVE PROTEIN QUANTITATIV < 0.40 MG/DL (<1.0)
[2024-03-13 07:11] LABS: BLOOD UREA NITROGEN 33 MG/DL (9-23); CARBON DIOXIDE LEVEL 27 MMOL/L (20-31); CHLORIDE LEVEL 104 MMOL/L (98-107); CREATININE FOR GFR 0.65 MG/DL (0.55-1.30); GLOMERULAR FILTRATION RATE > 60.0 (>39); GLUCOSE, FASTING 145 MG/DL (74-106); POTASSIUM SERUM 4.6 MMOL/L (3.5-5.1); SODIUM LEVEL 134 MMOL/L (136-145)
[2024-03-13] MEDS: METOPROLOL TART 50 MG TAB PO SCH (09:22)
[2024-03-13] MEDS: LOSARTAN 50MG TABLET PO SCH (09:23)
[2024-03-13] MEDS: methylPREDNISolone 40MG 1ML VIAL IV SCH (17:38)
[2024-03-14 04:29] VITALS: BP 133/92; TEMP 98.1; O2SAT 93
[2024-03-14 05:04] LABS: BASO % 0.1 % (0.0-1.0); HEMATOCRIT 35.3 % (36.0-47.0); HEMOGLOBIN 11.3 g/dl (12.0-15.5); LYMPH # 0.4 10^3/uL (1.5-5.0); LYMPH % 3.9 % (24.0-44.0); MEAN CORPUSCULAR HEMOGLOBIN 26.1 pg (27.0-33.0); MEAN CORPUSCULAR VOLUME 81.5 fl (80.0-96.0); MONO # 0.5 10^3/uL (0.0-0.8); MONO % 4.9 % (2.0-8.0); NEUTROPHILS # 8.9 10^3/uL (1.5-8.5); NEUTROPHILS % 89.6 % (36.0-66.0); PLATELET COUNT, AUTOMATED 325 10^3/uL (150-450); RED BLOOD COUNT 4.33 10^6/uL (4.00-5.40); WHITE BLOOD COUNT 9.9 10^3/uL (4.0-10.0)
[2024-03-14 05:21] LABS: BLOOD UREA NITROGEN 28 MG/DL (9-23); CALCIUM LEVEL 9.2 MG/DL (8.3-10.6); CARBON DIOXIDE LEVEL 25 MMOL/L (20-31); CHLORIDE LEVEL 106 MMOL/L (98-107); CREATININE FOR GFR 0.65 MG/DL (0.55-1.30); GLOMERULAR FILTRATION RATE > 60.0 (>39); GLUCOSE, FASTING 125 MG/DL (74-106); POTASSIUM SERUM 4.7 MMOL/L (3.5-5.1); SODIUM LEVEL 136 MMOL/L (136-145)
[2024-03-14] MEDS: CEFDINIR 300 MG CAP (OMNICEF) PO SCH (09:43)
[2024-03-14 12:00] VITALS: BP 138/89; TEMP 97.7; O2SAT 94
[2024-03-14 20:48] VITALS: BP 130/81; TEMP 98.6; O2SAT 92
[2024-03-14 21:00] VITALS: O2SAT 91
[2024-03-14] MEDS: methylPREDNISolone 40MG 1ML VIAL IV SCH (21:35)
[2024-03-15 04:00] VITALS: BP 142/88; TEMP 98.1; O2SAT 92
[2024-03-15 06:25] LABS: BASO % 0.2 % (0.0-1.0); HEMATOCRIT 34.6 % (36.0-47.0); HEMOGLOBIN 11.3 g/dl (12.0-15.5); LYMPH # 0.7 10^3/uL (1.5-5.0); LYMPH % 5.8 % (24.0-44.0); MEAN CORPUSCULAR HEMOGLOBIN 25.7 pg (27.0-33.0); MEAN CORPUSCULAR HGB CONC 32.7 g/dl (32.0-36.5); MEAN CORPUSCULAR VOLUME 78.8 fl (80.0-96.0); MONO % 8.1 % (2.0-8.0); NEUTROPHILS # 10.7 10^3/uL (1.5-8.5); NEUTROPHILS % 84.1 % (36.0-66.0); PLATELET COUNT, AUTOMATED 295 10^3/uL (150-450); RED BLOOD COUNT 4.39 10^6/uL (4.00-5.40); WHITE BLOOD COUNT 12.8 10^3/uL (4.0-10.0)
[2024-03-15 06:50] LABS: C REACTIVE PROTEIN QUANTITATIV < 0.40 MG/DL (<1.0)
[2024-03-15 06:51] LABS: BLOOD UREA NITROGEN 24 MG/DL (9-23); CALCIUM LEVEL 8.6 MG/DL (8.3-10.6); CARBON DIOXIDE LEVEL 26 MMOL/L (20-31); CHLORIDE LEVEL 107 MMOL/L (98-107); CREATININE FOR GFR 0.64 MG/DL (0.55-1.30); GLOMERULAR FILTRATION RATE > 60.0 (>39); GLUCOSE, FASTING 110 MG/DL (74-106); POTASSIUM SERUM 4.8 MMOL/L (3.5-5.1); SODIUM LEVEL 137 MMOL/L (136-145)
[2024-03-15 09:04] VITALS: BP 145/93
[2024-03-15] MEDS ORDERED: MUCI600T31 PO (11:18)
[2024-03-15] MEDS ORDERED: CEFD300CAP PO (11:18)
[2024-03-15] MEDS ORDERED: PRED20TA PO (11:18)
== END 2024-03-15 12:23 | disposition home health service (06) | DRG 189 ==
LOC: M ED 04:07 → EDBD 04:07 → M ED INP 10:14 → M PCU 17:59 → M MSPAV 03-13 18:25
PROVIDERS: ADMIT General Practice; ATTEND Hospitalist
DX: J96.01 Acute respiratory failure with hypoxia (principal); J44.1 Chronic obstructive pulmonary disease with (acute) exacerbation; B02.39 Other herpes zoster eye disease; Q60.0 Renal agenesis, unilateral; I87.2 Venous insufficiency (chronic) (peripheral); I10 Essential (primary) hypertension; K27.9 Peptic ulcer, site unspecified, unspecified as acute or chronic, without hemorrhage or perforation; M54.50 Low back pain, unspecified; K44.9 Diaphragmatic hernia without obstruction or gangrene; G25.81 Restless legs syndrome; I73.00 Raynaud's syndrome without gangrene; K21.9 Gastro-esophageal reflux disease without esophagitis; Z87.891 Personal history of nicotine dependence; G89.29 Other chronic pain; G43.909 Migraine, unspecified, not intractable, without status migrainosus; K64.8 Other hemorrhoids; Z79.899 Other long term (current) drug therapy; Z86.73 Personal history of transient ischemic attack (TIA), and cerebral infarction without residual deficits; Z98.49 Cataract extraction status, unspecified eye

== ENCOUNTER 2024-03-18 13:28 | Observation (INO) | payer MEDICARE ==
[~2024-03-18] VITALS: Ht 152.4 cm; Wt 71.3 kg
[~2024-03-18 13:28] MED LIST changes: +ACET-897 PO; +CEFD300CAP PO; +MUCI600T31 PO; +OMEP40CA5 PO; +PRED20TA PO; +SUCR1TAB56 PO; +TIZA2TA PO
[2024-03-18 16:30] LABS: BASO % 0.1 % (0.0-1.0); HEMATOCRIT 30.8 % (36.0-47.0); HEMOGLOBIN 9.7 g/dl (12.0-15.5); LYMPH # 1.3 10^3/uL (1.5-5.0); LYMPH % 7.8 % (24.0-44.0); MEAN CORPUSCULAR HEMOGLOBIN 26.3 pg (27.0-33.0); MEAN CORPUSCULAR HGB CONC 31.5 g/dl (32.0-36.5); MEAN CORPUSCULAR VOLUME 83.5 fl (80.0-96.0); MONO # 0.9 10^3/uL (0.0-0.8); MONO % 5.5 % (2.0-8.0); NEUTROPHILS # 13.8 10^3/uL (1.5-8.5); NEUTROPHILS % 85.4 % (36.0-66.0); PLATELET COUNT, AUTOMATED 233 10^3/uL (150-450); RED BLOOD COUNT 3.69 10^6/uL (4.00-5.40); WHITE BLOOD COUNT 16.2 10^3/uL (4.0-10.0)
[2024-03-18] MEDS: ACETAMINOPHEN 500 MG TAB PO ONE (16:58)
[2024-03-18 17:05] LABS: BLOOD UREA NITROGEN 20 MG/DL (9-23); CALCIUM LEVEL 7.8 MG/DL (8.3-10.6); CARBON DIOXIDE LEVEL 22 MMOL/L (20-31); CHLORIDE LEVEL 110 MMOL/L (98-107); CK-MB VALUE MASS < 1.0 NG/ML (<3.6); CPK CREATINE PHOSPHOKINASE 64 U/L (34-145); CREATININE FOR GFR 0.81 MG/DL (0.55-1.30); GLOMERULAR FILTRATION RATE > 60.0 (>39); GLUCOSE, FASTING 103 MG/DL (74-106); MB/CK RELATIVE INDEX 1.56 (< OR =4); POTASSIUM SERUM 4.9 MMOL/L (3.5-5.1); SODIUM LEVEL 136 MMOL/L (136-145); THYROID STIMULATING HORMONE 2.275 uIU/ML (0.55-4.78)
[2024-03-18] MEDS ORDERED: CEFD1CAP9 PO (18:12)
[2024-03-18] MEDS ORDERED: PRED20TA PO (18:12)
[2024-03-18] MEDS ORDERED: HOME MED LIST COMPLETE! XX SCH (18:15)
[2024-03-18] MEDS ORDERED: ALBUTEROL 90 MCG/ACT 8GM HFA INHALER INH PRN (18:20)
[2024-03-18] MEDS: IPRATROPIUM 0.5MG/ALBUTEROL 2.5MG INH SOL UD 3ML (DUONEB) NEB ONE (18:55)
[2024-03-18] MEDS: FORMOTEROL FUMARATE 20 MCG/2 ML INHALATION SOLUTION (PERFOROMIST) INH SCH (19:07)
[2024-03-18] MEDS: IPRATROPIUM 0.5MG/ALBUTEROL 2.5MG INH SOL UD 3ML (DUONEB) NEB SCH (20:00)
[2024-03-18] MEDS: SENOKOT S TAB PO SCH (21:44)
[2024-03-18] MEDS: GABAPENTIN 400MG CAP PO SCH (21:44)
[2024-03-18] MEDS: SUCRALFATE 1 GM TAB PO SCH (21:44)
[2024-03-18] MEDS: AMITRIPTYLINE 25MG TABLET PO SCH (21:44)
[2024-03-18 23:55] VITALS: BP 137/62; TEMP 97; O2SAT 93
[2024-03-19] VITALS (7 sets, daily range): BP systolic 117–125; BP diastolic 64–73; TEMP 97–97.3; O2SAT 97–100
[2024-03-19] MEDS: LIDOCAINE 5% (LIDODERM) PATCH TD ONE (01:00)
[2024-03-19] MEDS: CETIRIZINE (ZyrTEC) 10 MG TAB PO SCH (08:09)
[2024-03-19] MEDS: OMEPRAZOLE 20MG CAP PO SCH (08:09)
[2024-03-19 09:14] LABS: BASO % 0.2 % (0.0-1.0); HEMATOCRIT 28.6 % (36.0-47.0); LYMPH # 1.6 10^3/uL (1.5-5.0); LYMPH % 13.7 % (24.0-44.0); MEAN CORPUSCULAR HEMOGLOBIN 26.4 pg (27.0-33.0); MEAN CORPUSCULAR HGB CONC 31.5 g/dl (32.0-36.5); MEAN CORPUSCULAR VOLUME 83.9 fl (80.0-96.0); MONO # 0.8 10^3/uL (0.0-0.8); MONO % 7.1 % (2.0-8.0); NEUTROPHILS # 8.8 10^3/uL (1.5-8.5); NEUTROPHILS % 77.5 % (36.0-66.0); PLATELET COUNT, AUTOMATED 233 10^3/uL (150-450); RED BLOOD COUNT 3.41 10^6/uL (4.00-5.40); WHITE BLOOD COUNT 11.3 10^3/uL (4.0-10.0)
[2024-03-19 09:25] LABS: BLOOD UREA NITROGEN 15 MG/DL (9-23); CALCIUM LEVEL 8.4 MG/DL (8.3-10.6); CARBON DIOXIDE LEVEL 21 MMOL/L (20-31); CHLORIDE LEVEL 111 MMOL/L (98-107); GLOMERULAR FILTRATION RATE > 60.0 (>39); GLUCOSE, FASTING 103 MG/DL (74-106); POTASSIUM SERUM 3.5 MMOL/L (3.5-5.1); SODIUM LEVEL 139 MMOL/L (136-145)
[2024-03-19] MEDS: FLUBLOK(EGGFREE) TRIVAL(24-25) VACCINE PF 0.5ML SYRINGE 18YRS & OLDER IM.IMMUN ONE (11:08)
== END 2024-03-19 14:18 | disposition home or self-care (01) ==
LOC: M ED 13:28 → M ED INP 13:29 → M PCU 23:55
PROVIDERS: ADMIT Internal Medicine Nephrology; ATTEND Internal Medicine Nephrology
DX: R55 Syncope and collapse (principal); Z23 Encounter for immunization; J44.9 Chronic obstructive pulmonary disease, unspecified; I10 Essential (primary) hypertension; G89.29 Other chronic pain; G25.81 Restless legs syndrome; K21.9 Gastro-esophageal reflux disease without esophagitis; N26.1 Atrophy of kidney (terminal); K27.9 Peptic ulcer, site unspecified, unspecified as acute or chronic, without hemorrhage or perforation; K31.84 Gastroparesis; D50.9 Iron deficiency anemia, unspecified; I73.00 Raynaud's syndrome without gangrene; Z86.73 Personal history of transient ischemic attack (TIA), and cerebral infarction without residual deficits; G43.909 Migraine, unspecified, not intractable, without status migrainosus; M54.81 Occipital neuralgia; Z90.49 Acquired absence of other specified parts of digestive tract; Z98.41 Cataract extraction status, right eye; Z98.42 Cataract extraction status, left eye; Z90.79 Acquired absence of other genital organ(s); Z87.891 Personal history of nicotine dependence; Z79.51 Long term (current) use of inhaled steroids; Z79.52 Long term (current) use of systemic steroids; Z79.899 Other long term (current) drug therapy; K44.9 Diaphragmatic hernia without obstruction or gangrene; K64.8 Other hemorrhoids
CPT/HCPCS: 36415; 70450; 71045; 80048; 82550; 82553; 84443; 84484; 85025; 90673; 93005; 93041; 94640; 94760; 99285; G0008; G0378; J7606

== ENCOUNTER → 2024-04-02 | Outpatient (CLI) | payer MEDICARE ==
[~2024-04-02] MED LIST changes: +CEFD1CAP9 PO
== END ==
LOC: M EKG 09:41
PROVIDERS: ATTEND Internal Medicine Cardiovascular Disease
DX: R55 Syncope and collapse (principal)

== ENCOUNTER 2024-07-22 00:07 | Inpatient (IN) | payer MEDICARE ==
[~2024-07-22] VITALS: Ht 152.4 cm; Wt 64.4 kg
[~2024-07-22 00:07] MED LIST changes: +ATOR40TA75; +IMIT50TA PO; +MECL-86 PO; -YUPE175S IN; +YUPE175S INH
[2024-07-22 00:36] LABS: VENOUS BASE EXCESS 1.5 (-2.0-2.0); VENOUS O2 SATURATION 65.6 % (60.0-80.0); VENOUS PARTIAL PRESSURE O2 35.8 mmHg (30.0-50.0); VENOUS PH 7.386 UNITS (7.330-7.430); VENOUS STANDARD HCO3 25.1 MMOL/L; VENOUS TOTAL CO2 28.4 MMOL/L (24.0-28.0)
[2024-07-22 00:57] LABS: BASO % 0.1 % (0.0-1.0); HEMATOCRIT 38.2 % (36.0-47.0); HEMOGLOBIN 11.1 g/dl (12.0-15.5); LYMPH # 1.4 10^3/uL (1.5-5.0); LYMPH % 8.1 % (24.0-44.0); MEAN CORPUSCULAR HEMOGLOBIN 20.6 pg (27.0-33.0); MEAN CORPUSCULAR HGB CONC 29.1 g/dl (32.0-36.5); MEAN CORPUSCULAR VOLUME 70.9 fl (80.0-96.0); MONO # 1.5 10^3/uL (0.0-0.8); MONO % 8.7 % (2.0-8.0); NEUTROPHILS # 14.3 10^3/uL (1.5-8.5); NEUTROPHILS % 82.6 % (36.0-66.0); PLATELET COUNT, AUTOMATED 339 10^3/uL (150-450); RED BLOOD COUNT 5.39 10^6/uL (4.00-5.40); WHITE BLOOD COUNT 17.3 10^3/uL (4.0-10.0)
[2024-07-22 01:19] LABS: CK-MB VALUE MASS 1.1 NG/ML (<3.6)
[2024-07-22 01:21] LABS: CPK CREATINE PHOSPHOKINASE 41 U/L (34-145); MB/CK RELATIVE INDEX 2.68 (< OR =4)
[2024-07-22 01:35] LABS: ALKALINE PHOSPHATASE 109 U/L (35-104); ALT/SGPT 21 U/L (7.0-40); AST/SGOT 20 U/L (<34); BILIRUBIN,DIRECT < 0.1 MG/DL (<0.4); BILIRUBIN,TOTAL 0.2 MG/DL (0.3-1.2); BLOOD UREA NITROGEN 27 MG/DL (9-23); CALCIUM LEVEL 9.4 MG/DL (8.3-10.6); CARBON DIOXIDE LEVEL 27 MMOL/L (20-31); CHLORIDE LEVEL 104 MMOL/L (98-107); CREATININE FOR GFR 0.78 MG/DL (0.55-1.30); GLOMERULAR FILTRATION RATE > 60.0 (>39); GLUCOSE, FASTING 113 MG/DL (74-106); POTASSIUM SERUM 3.9 MMOL/L (3.5-5.1); SODIUM LEVEL 142 MMOL/L (136-145); TOTAL PROTEIN 7.1 G/DL (5.7-8.2)
[2024-07-22 01:41] LABS: ALBUMIN 3.4 G/DL (3.2-5.2)
[2024-07-22 03:02] LABS: CK-MB VALUE MASS < 1.0 NG/ML (<3.6); CPK CREATINE PHOSPHOKINASE 56 U/L (34-145); MB/CK RELATIVE INDEX 1.78 (< OR =4)
[2024-07-22] MEDS ORDERED: methylPREDNISolone 125MG 2ML VIAL IV ONE (05:05)
[2024-07-22] MEDS: IPRATROPIUM 0.5MG/ALBUTEROL 2.5MG INH SOL UD 3ML (DUONEB) NEB ONE ×2 (05:05→05:19)
[2024-07-22] MEDS ORDERED: PRED10TA2 PO (05:08)
[2024-07-22] MEDS ORDERED: IPRA0.00 NEB (05:08)
[2024-07-22] MEDS ORDERED: LEVO1TAB40 PO (05:21)
[2024-07-22] MEDS: LevoFLOXacin 500 MG TABLET PO ONE (06:25)
[2024-07-22 07:00] LABS: PROCALCITONIN 0.09 ng/ml
[2024-07-22] MEDS ORDERED: MAALOX 30 ML SUSP *UDC PO PRN (07:40)
[2024-07-22] MEDS ORDERED: ACETAMINOPHEN 325 MG TAB PO PRN (07:40)
[2024-07-22] MEDS ORDERED: MOM 30ML SUSPENSION UDC PO PRN (07:40)
[2024-07-22] MEDS: FORMOTEROL FUMARATE 20 MCG/2 ML INHALATION SOLUTION (PERFOROMIST) INH SCH (08:00)
[2024-07-22] MEDS: BUDESONIDE 0.5 MG/2 ML INHALATION SUSPENSION NEB SCH (08:51)
[2024-07-22] MEDS: IPRATROPIUM 0.5MG/ALBUTEROL 2.5MG INH SOL UD 3ML (DUONEB) NEB STA (08:51)
[2024-07-22] MEDS: methylPREDNISolone 40MG 1ML VIAL IV SCH (09:26)
[2024-07-22] MEDS: guaiFENesin ER TABLET 600 MG TAB PO SCH (09:26)
[2024-07-22] MEDS: AZITHROMYCIN 250MG TABLET PO SCH (09:26)
[2024-07-22] MEDS ORDERED: PANT40TA29 PO (10:32)
[2024-07-22] MEDS ORDERED: ASPI81TA26 PO (10:32)
[2024-07-22] MEDS ORDERED: ATOR80TA59 PO (10:32)
[2024-07-22] MEDS ORDERED: SUCR1TA PO (10:32)
[2024-07-22] MEDS ORDERED: LOSA100T46 PO (10:32)
[2024-07-22] MEDS ORDERED: HOME MED LIST COMPLETE! XX SCH (10:35)
[2024-07-22] MEDS ORDERED: MECLIZINE 25 MG TABLET PO PRN (16:20)
[2024-07-22 17:15] VITALS: BP 136/82; TEMP 97.3; O2SAT 91
[2024-07-22] MEDS: ASPIRIN 81MG ENTERIC TABLET PO SCH (18:17)
[2024-07-22] MEDS: LOSARTAN 50MG TABLET PO SCH (18:18)
[2024-07-22] MEDS: SUCRALFATE 1 GM TAB PO SCH (18:18)
[2024-07-22] MEDS: CETIRIZINE (ZyrTEC) 10 MG TAB PO SCH (18:18)
[2024-07-22] MEDS: CHLORTHALIDONE 12.5MG PER 1/2 TABLET PO SCH (18:53)
[2024-07-22 19:54] VITALS: O2SAT 95
[2024-07-22 20:00] VITALS: BP 136/85; TEMP 97.7; O2SAT 95
[2024-07-22] MEDS: PANTOPRAZOLE 40MG TAB (PROTONIX) PO SCH (20:16)
[2024-07-22] MEDS: ATORVASTATIN 20 MG TAB PO SCH (20:16)
[2024-07-22] MEDS: AMITRIPTYLINE 25MG TABLET PO SCH (20:16)
[2024-07-22] MEDS: METOPROLOL TART 50 MG TAB PO SCH (20:17)
[2024-07-23 03:10] VITALS: BP 128/68; TEMP 97.9; O2SAT 94
[2024-07-23 06:20] LABS: BLOOD UREA NITROGEN 34 MG/DL (9-23); CALCIUM LEVEL 9.1 MG/DL (8.3-10.6); CARBON DIOXIDE LEVEL 26 MMOL/L (20-31); CHLORIDE LEVEL 102 MMOL/L (98-107); GLOMERULAR FILTRATION RATE > 60.0 (>39); GLUCOSE, FASTING 131 MG/DL (74-106); MAGNESIUM LEVEL 2.2 MG/DL (1.8-2.4); POTASSIUM SERUM 4.8 MMOL/L (3.5-5.1); SODIUM LEVEL 137 MMOL/L (136-145)
[2024-07-23 07:57] LABS: HEMATOCRIT 32.7 % (36.0-47.0); HEMOGLOBIN 9.5 g/dl (12.0-15.5); LYMPH # 0.9 10^3/uL (1.5-5.0); LYMPH % 6.6 % (24.0-44.0); MEAN CORPUSCULAR HEMOGLOBIN 20.2 pg (27.0-33.0); MEAN CORPUSCULAR HGB CONC 29.1 g/dl (32.0-36.5); MEAN CORPUSCULAR VOLUME 69.4 fl (80.0-96.0); MONO # 0.6 10^3/uL (0.0-0.8); MONO % 4.5 % (2.0-8.0); NEUTROPHILS # 11.8 10^3/uL (1.5-8.5); NEUTROPHILS % 88.2 % (36.0-66.0); PLATELET COUNT, AUTOMATED 301 10^3/uL (150-450); RED BLOOD COUNT 4.71 10^6/uL (4.00-5.40); WHITE BLOOD COUNT 13.4 10^3/uL (4.0-10.0)
[2024-07-23] MEDS: ENOXAPARIN 40MG/0.4ML SYRINGE (J1650 PER 10MG) SC SCH (08:53)
[2024-07-23] MEDS ORDERED: MECLIZINE 25 MG TABLET PO ONE (11:30)
[2024-07-23 12:00] VITALS: BP 129/69; TEMP 97.7; O2SAT 94
[2024-07-23] MEDS ORDERED: GABAPENTIN 400MG CAP PO PRN (12:00)
[2024-07-23 12:14] LABS: IRON (FE) 37 UG/DL (50-170)
[2024-07-23 12:16] LABS: FERRITIN 6.6 NG/ML (7.3-270.7); FOLATE 3.3 NG/ML (>5.4); PERCENT SATURATION 11.1 % (13.2-45.0); TOTAL IRON BINDING CAPACITY 334 UG/DL (250-425)
[2024-07-23 12:17] LABS: VITAMIN B12 LEVEL 246 PG/ML (211-911)
[2024-07-23] MEDS ORDERED: POLYVINYL ALCOHOL OPHTH SOLN 15ML (LIQUITEARS) OU PRN (12:45)
[2024-07-23] MEDS ORDERED: FOLIC ACID 1 MG in NS 50 ML IV SCH (13:15)
[2024-07-23] MEDS: IPRATROPIUM 0.5MG/ALBUTEROL 2.5MG INH SOL UD 3ML (DUONEB) NEB SCH (14:00)
[2024-07-23] MEDS: FERRIC CARBOXYMALTOSE INJ 750 MG, VIAL MATE ADAPTER 1 EACH in NS 100 ML IV ONE (15:05)
[2024-07-23] MEDS: FOLIC ACID 1MG TAB PO SCH (15:05)
[2024-07-23] MEDS ORDERED: MECLIZINE 25 MG TABLET PO PRN (16:00)
[2024-07-23] MEDS ORDERED: MECLIZINE 25 MG TABLET PO SCH (16:00)
[2024-07-23] MEDS: methylPREDNISolone 40MG 1ML VIAL IV SCH (17:03)
[2024-07-23 20:00] VITALS: BP 124/70; TEMP 97.5; O2SAT 94
[2024-07-24 03:25] VITALS: BP 118/67; TEMP 97.7; O2SAT 97
[2024-07-24] MEDS ORDERED: ISOVUE-370 76% 100ML VIAL As Ordered ONE (09:36)
[2024-07-24] MEDS: SUMAtriptan SUCCINATE 25MG TABLET PO PRN (10:51)
[2024-07-24 12:00] VITALS: BP 121/78; TEMP 97.9; O2SAT 94
[2024-07-24 14:03] LABS: HEMATOCRIT 36.1 % (36.0-47.0); HEMOGLOBIN 10.6 g/dl (12.0-15.5); MEAN CORPUSCULAR HEMOGLOBIN 20.5 pg (27.0-33.0); MEAN CORPUSCULAR HGB CONC 29.4 g/dl (32.0-36.5); MEAN CORPUSCULAR VOLUME 69.7 fl (80.0-96.0); PLATELET COUNT, AUTOMATED 347 10^3/uL (150-450); RED BLOOD COUNT 5.18 10^6/uL (4.00-5.40); WHITE BLOOD COUNT 14.6 10^3/uL (4.0-10.0)
[2024-07-24 14:28] LABS: BLOOD UREA NITROGEN 37 MG/DL (9-23); CALCIUM LEVEL 9.2 MG/DL (8.3-10.6); CARBON DIOXIDE LEVEL 24 MMOL/L (20-31); CHLORIDE LEVEL 103 MMOL/L (98-107); CREATININE FOR GFR 0.85 MG/DL (0.55-1.30); GLOMERULAR FILTRATION RATE > 60.0 (>39); GLUCOSE, FASTING 138 MG/DL (74-106); POTASSIUM SERUM 4.7 MMOL/L (3.5-5.1); SODIUM LEVEL 135 MMOL/L (136-145)
[2024-07-24 19:58] VITALS: O2SAT 92
[2024-07-24 20:43] VITALS: BP 118/77; TEMP 97.5; O2SAT 95
[2024-07-25 04:16] VITALS: BP 124/75; TEMP 97.5; O2SAT 91
[2024-07-25] MEDS: GLYCOPYRROLATE INJ 0.2 MG/ML 2 ML VIAL NEB SCH (08:00)
[2024-07-25] MEDS: predniSONE 50 MG TAB PO SCH (10:49)
[2024-07-25 12:20] VITALS: BP 120/73; TEMP 97.5; O2SAT 93
[2024-07-25 19:52] VITALS: O2SAT 92
[2024-07-25 20:18] VITALS: BP 116/71; TEMP 97.3; O2SAT 95
[2024-07-26 03:28] VITALS: BP 113/73; TEMP 97.7; O2SAT 93
[2024-07-26 07:50] VITALS: BP 114/75; TEMP 97.5; O2SAT 94
[2024-07-26 07:57] VITALS: BP 114/75
[2024-07-26] MEDS ORDERED: IPRA0.00 INH (11:15)
[2024-07-26] MEDS ORDERED: FOLI1TAB11 PO (11:15)
[2024-07-26] MEDS ORDERED: FERR325T3 PO (11:15)
[2024-07-26] MEDS ORDERED: PRED10TA2 PO (11:15)
[2024-07-26] MEDS ORDERED: PRED20TA PO (11:15)
== END 2024-07-26 13:31 | disposition home health service (06) | DRG 190 ==
LOC: M ED 00:07 → M ED INP 07:51 → M MSPAV 17:03
PROVIDERS: ADMIT Student in an Organized Health Care Education/Training Program; ATTEND Student in an Organized Health Care Education/Training Program
DX: J44.1 Chronic obstructive pulmonary disease with (acute) exacerbation (principal); J96.21 Acute and chronic respiratory failure with hypoxia; B33.8 Other specified viral diseases; J06.9 Acute upper respiratory infection, unspecified; I10 Essential (primary) hypertension; K31.84 Gastroparesis; D50.9 Iron deficiency anemia, unspecified; E78.5 Hyperlipidemia, unspecified; I25.10 Atherosclerotic heart disease of native coronary artery without angina pectoris; B97.4 Respiratory syncytial virus as the cause of diseases classified elsewhere; I73.00 Raynaud's syndrome without gangrene; G89.29 Other chronic pain; K21.9 Gastro-esophageal reflux disease without esophagitis; D72.829 Elevated white blood cell count, unspecified; M54.59 Other low back pain; G25.81 Restless legs syndrome; Z98.41 Cataract extraction status, right eye; Z98.42 Cataract extraction status, left eye; Z86.73 Personal history of transient ischemic attack (TIA), and cerebral infarction without residual deficits; G43.909 Migraine, unspecified, not intractable, without status migrainosus; K64.8 Other hemorrhoids; Z79.899 Other long term (current) drug therapy; Z79.82 Long term (current) use of aspirin

== ENCOUNTER 2024-08-04 14:14 | Inpatient (IN) | payer MEDICARE ==
[~2024-08-04] VITALS: Ht 152.4 cm; Wt 68.0 kg
[~2024-08-04 14:14] MED LIST changes: +ASPI81TA26 PO; +ATOR80TA59 PO; +FERR325T3 PO; +FOLI1TAB11 PO; +IPRA0.00 NEB; +LEVO1TAB40 PO; +PRED10TA2 PO; +SUCR1TA PO
[2024-08-04] MEDS: NS 500 ML IV ONE (14:50)
[2024-08-04 15:11] LABS: BASO % 0.1 % (0.0-1.0); HEMATOCRIT 32.4 % (36.0-47.0); HEMOGLOBIN 9.7 g/dl (12.0-15.5); LYMPH # 1.2 10^3/uL (1.5-5.0); LYMPH % 5.9 % (24.0-44.0); MEAN CORPUSCULAR HGB CONC 29.9 g/dl (32.0-36.5); MEAN CORPUSCULAR VOLUME 70.3 fl (80.0-96.0); MONO # 2.2 10^3/uL (0.0-0.8); MONO % 10.8 % (2.0-8.0); NEUTROPHILS # 16.6 10^3/uL (1.5-8.5); NEUTROPHILS % 82.4 % (36.0-66.0); PLATELET COUNT, AUTOMATED 271 10^3/uL (150-450); RED BLOOD COUNT 4.61 10^6/uL (4.00-5.40); WHITE BLOOD COUNT 20.2 10^3/uL (4.0-10.0)
[2024-08-04] MEDS: methylPREDNISolone 125MG 2ML VIAL IV ONE (15:17)
[2024-08-04] MEDS: IPRATROPIUM 0.5MG/ALBUTEROL 2.5MG INH SOL UD 3ML (DUONEB) NEB ONE (15:20)
[2024-08-04 15:27] LABS: INR 0.88; PARTIAL THROMBOPLASTIN TIME 21.5 SECONDS (24.8-34.2); PROTHROMBIN TIME 12.2 SECONDS (12.5-14.5)
[2024-08-04 15:29] LABS: CK-MB VALUE MASS 2.2 NG/ML (<3.6)
[2024-08-04 15:31] LABS: ALBUMIN 2.9 G/DL (3.2-5.2); ALKALINE PHOSPHATASE 71 U/L (35-104); ALT/SGPT 27 U/L (7.0-40); AST/SGOT 22 U/L (<34); BILIRUBIN,DIRECT < 0.1 MG/DL (<0.4); BILIRUBIN,TOTAL 0.2 MG/DL (0.3-1.2); BLOOD UREA NITROGEN 88 MG/DL (9-23); CALCIUM LEVEL 8.5 MG/DL (8.3-10.6); CARBON DIOXIDE LEVEL 21 MMOL/L (20-31); CHLORIDE LEVEL 105 MMOL/L (98-107); CREATININE FOR GFR 2.44 MG/DL (0.55-1.30); GLOMERULAR FILTRATION RATE 20.8 (>39); GLUCOSE, FASTING 96 MG/DL (74-106); SODIUM LEVEL 134 MMOL/L (136-145); TOTAL PROTEIN 5.7 G/DL (5.7-8.2)
[2024-08-04 15:41] LABS: CPK CREATINE PHOSPHOKINASE 188 U/L (34-145); MB/CK RELATIVE INDEX 1.17 (< OR =4)
[2024-08-04 15:43] LABS: ABG BASE EXCESS -3.2 (-2.0-2.0); ABG HCO3 18.9 MMOL/L (22.0-26.0); ABG O2 SATURATION 99.5 % (95.0-99.0); ABG PARTIAL PRESSURE O2 209.5 mmHg (75.0-100.0); ABG STANDARD HCO3 21.8 MMOL/L. (22.0-26.0); ABG TOTAL CO2 19.7 MMOL/L (23.0-31.0); ABG pH (ARTERIAL) 7.497 UNITS (7.350-7.450)
[2024-08-04] MEDS: NS 0.9% IV ONE (16:32)
[2024-08-04] MEDS: [UNRECOGNIZED DRUG - OTHER] IV ONE (16:32)
[2024-08-04 16:35] LABS: KETONE, URINE AUTO RFX NEGATIVE (NEGATIVE); LEUKOCYTE ESTERASE UR AUTO RFX NEGATIVE (NEGATIVE); NITRITE, URINE AUTO RFX NEGATIVE (NEGATIVE); RBC, URINE AUTO RFX 0 /HPF (0-3); SQUAM EPITHELIAL CELL UR AURFX 0 /HPF (0-6); WBC, URINE AUTO RFX 0 /HPF (0-3)
[2024-08-04 16:45] LABS: CK-MB VALUE MASS 2.3 NG/ML (<3.6)
[2024-08-04 16:57] LABS: MB/CK RELATIVE INDEX 1.19 (< OR =4)
[2024-08-04] MEDS: cefTRIAXone SOD 2 GM in DEXTROSE 5% (D5W) ADV/MINI-BAG 50 ML IV ONE (17:19)
[2024-08-04] MEDS: NS (Normal Saline) 0.9% 1,000 ML IV SCH (17:45)
[2024-08-04] MEDS: IPRATROPIUM 0.5MG/ALBUTEROL 2.5MG INH SOL UD 3ML (DUONEB) NEB SCH (20:27)
[2024-08-04] MEDS: ACETAMINOPHEN 325 MG TAB PO PRN (20:27)
[2024-08-05] MEDS ORDERED: HOME MED LIST COMPLETE! XX SCH ×2 (01:35→02:20)
[2024-08-05] MEDS ORDERED: CLOP75TA2 PO (02:18)
[2024-08-05] MEDS: HEPARIN SOD (PORCINE) 5000UNITS/ML 1ML VIAL/SYRINGE SC SCH (06:31)
[2024-08-05 06:51] LABS: HEMATOCRIT 26.7 % (36.0-47.0); HEMOGLOBIN 8.2 g/dl (12.0-15.5); MEAN CORPUSCULAR HEMOGLOBIN 21.4 pg (27.0-33.0); MEAN CORPUSCULAR HGB CONC 30.7 g/dl (32.0-36.5); MEAN CORPUSCULAR VOLUME 69.7 fl (80.0-96.0); PLATELET COUNT, AUTOMATED 218 10^3/uL (150-450); RED BLOOD COUNT 3.83 10^6/uL (4.00-5.40); WHITE BLOOD COUNT 12.2 10^3/uL (4.0-10.0)
[2024-08-05] MEDS ORDERED: MECLIZINE 25 MG TABLET PO PRN (07:25)
[2024-08-05] MEDS ORDERED: SUMAtriptan SUCCINATE 25MG TABLET PO PRN (07:25)
[2024-08-05] MEDS ORDERED: GABAPENTIN 400MG CAP PO PRN (07:25)
[2024-08-05 07:32] LABS: CALCIUM LEVEL 7.8 MG/DL (8.3-10.6); CREATININE FOR GFR 1.31 MG/DL (0.55-1.30); GLOMERULAR FILTRATION RATE 42.6 (>39)
[2024-08-05] MEDS: SYMBICORT 160/4.5MCG INHALER 6GM INH SCH (08:00)
[2024-08-05] MEDS: PANTOPRAZOLE 40MG TAB (PROTONIX) PO SCH (08:40)
[2024-08-05] MEDS: FOLIC ACID 1MG TAB PO SCH (08:40)
[2024-08-05] MEDS: ATORVASTATIN 20 MG TAB PO SCH (08:40)
[2024-08-05] MEDS: SUCRALFATE 1 GM TAB PO SCH (08:40)
[2024-08-05] MEDS: ASPIRIN 81MG ENTERIC TABLET PO SCH (08:40)
[2024-08-05] MEDS ORDERED: methocarbamoL 500 MG TAB PO PRN (10:15)
[2024-08-05] MEDS ORDERED: PRED10TA2 PO (11:35)
[2024-08-05] MEDS: ACETAMINOPHEN 500 MG TAB PO SCH (13:33)
[2024-08-05] MEDS: predniSONE 20 MG TAB PO SCH (13:33)
[2024-08-05] MEDS: GABAPENTIN 300 MG CAP PO SCH (13:33)
[2024-08-05] MEDS: PATIROMER SORBITEX CALCIUM 8.4 GM POWDER PACKET (VELTASSA) PO ONE (13:34)
[2024-08-05] MEDS ORDERED: PILL CUTTER 1 EACH XX ONE (13:39)
[2024-08-05] MEDS: LIDOCAINE 5% (LIDODERM) PATCH TD SCH (13:40)
[2024-08-05 19:30] VITALS: BP 125/64; TEMP 97.5; O2SAT 94
[2024-08-05] MEDS: AMITRIPTYLINE 25MG TABLET PO SCH (21:29)
[2024-08-06 04:00] VITALS: BP 105/66; TEMP 97.7; O2SAT 95
[2024-08-06 05:54] LABS: BASO % 0.1 % (0.0-1.0); HEMATOCRIT 28.3 % (36.0-47.0); HEMOGLOBIN 8.7 g/dl (12.0-15.5); LYMPH # 0.5 10^3/uL (1.5-5.0); LYMPH % 3.5 % (24.0-44.0); MEAN CORPUSCULAR HEMOGLOBIN 21.5 pg (27.0-33.0); MEAN CORPUSCULAR HGB CONC 30.7 g/dl (32.0-36.5); MONO # 0.9 10^3/uL (0.0-0.8); MONO % 6.1 % (2.0-8.0); NEUTROPHILS # 12.4 10^3/uL (1.5-8.5); NEUTROPHILS % 89.6 % (36.0-66.0); PLATELET COUNT, AUTOMATED 227 10^3/uL (150-450); RED BLOOD COUNT 4.04 10^6/uL (4.00-5.40); WHITE BLOOD COUNT 13.8 10^3/uL (4.0-10.0)
[2024-08-06 06:14] LABS: BLOOD UREA NITROGEN 41 MG/DL (9-23); CALCIUM LEVEL 8.3 MG/DL (8.3-10.6); CARBON DIOXIDE LEVEL 19 MMOL/L (20-31); CHLORIDE LEVEL 109 MMOL/L (98-107); CREATININE FOR GFR 0.76 MG/DL (0.55-1.30); GLOMERULAR FILTRATION RATE > 60.0 (>39); GLUCOSE, FASTING 126 MG/DL (74-106); POTASSIUM SERUM 4.7 MMOL/L (3.5-5.1); SODIUM LEVEL 140 MMOL/L (136-145)
[2024-08-06 08:30] VITALS: BP 115/69
[2024-08-06] MEDS ORDERED: METOPROLOL TART 50 MG TAB PO SCH (09:00)
[2024-08-06] MEDS: METOPROLOL TART 12.5 MG PER 1/2 TAB PO SCH (11:10)
[2024-08-06 11:11] VITALS: BP 124/74
[2024-08-06] MEDS ORDERED: METO1TAB87 PO (11:30)
[2024-08-06] MEDS ORDERED: LIDO5TD TD (11:30)
[2024-08-06] MEDS ORDERED: PRED20TA PO (11:30)
[2024-08-06] MEDS ORDERED: GABA-1172 PO (11:30)
[2024-08-06 12:00] VITALS: BP 101/66; TEMP 97.9; O2SAT 99
[2024-08-06] MEDS: NYSTATIN 500,000U/5ML SUSP UDC SS SCH (12:29)
== END 2024-08-06 15:18 | DRG 92 ==
LOC: EDBD 14:14 → M ED 14:14 → M ED INP 17:35 → M MSPAV 08-05 19:26
PROVIDERS: ADMIT Internal Medicine; ATTEND Internal Medicine
DX: R29.6 Repeated falls (principal); N17.9 Acute kidney failure, unspecified; J96.10 Chronic respiratory failure, unspecified whether with hypoxia or hypercapnia; Q60.3 Renal hypoplasia, unilateral; D50.9 Iron deficiency anemia, unspecified; K29.70 Gastritis, unspecified, without bleeding; E78.5 Hyperlipidemia, unspecified; K21.9 Gastro-esophageal reflux disease without esophagitis; J44.9 Chronic obstructive pulmonary disease, unspecified; I25.10 Atherosclerotic heart disease of native coronary artery without angina pectoris; I12.9 Hypertensive chronic kidney disease with stage 1 through stage 4 chronic kidney disease, or unspecified chronic kidney disease; N18.9 Chronic kidney disease, unspecified; G62.9 Polyneuropathy, unspecified; Z86.73 Personal history of transient ischemic attack (TIA), and cerebral infarction without residual deficits; G43.909 Migraine, unspecified, not intractable, without status migrainosus; Z87.891 Personal history of nicotine dependence; Z66 Do not resuscitate; Z79.899 Other long term (current) drug therapy; Z79.82 Long term (current) use of aspirin; Z79.52 Long term (current) use of systemic steroids; M25.551 Pain in right hip

== ENCOUNTER 2024-08-06 12:00 | Inpatient (IN) | payer MEDICARE ==
[~2024-08-06] VITALS: Ht 152.4 cm; Wt 74.6 kg
[~2024-08-06 12:00] MED LIST changes: +CLOP75TA2 PO; +GABA-1172 PO; +LIDO5TD TD; +METO1TAB87 PO
[2024-08-06] MEDS ORDERED: MAALOX 30 ML SUSP *UDC PO PRN (15:35)
[2024-08-06] MEDS ORDERED: BISACODYL 5MG TAB PO PRN (15:35)
[2024-08-06] MEDS ORDERED: BISACODYL 10MG SUPP PR PRN (15:35)
[2024-08-06] MEDS ORDERED: MECLIZINE 25 MG TABLET PO PRN (15:45)
[2024-08-06] MEDS ORDERED: POLYVINYL ALCOHOL OPHTH SOLN 15ML (LIQUITEARS) OU PRN (15:45)
[2024-08-06] MEDS ORDERED: SUMAtriptan SUCCINATE 25MG TABLET PO PRN (15:45)
[2024-08-06] MEDS ORDERED: ONDANSETRON 4MG ORAL DISINTEGRATING TAB SL PRN (15:45)
[2024-08-06] MEDS ORDERED: ALBUTEROL SULFATE 2.5MG/0.5ML INH NEB SOLN INH PRN (15:45)
[2024-08-06 16:26] VITALS: BP 122/66; TEMP 97.4; O2SAT 95
[2024-08-06] MEDS: NYSTATIN 500,000U/5ML SUSP UDC SS SCH (16:57)
[2024-08-06] MEDS: SUCRALFATE 1 GM TAB PO SCH (16:58)
[2024-08-06 20:03] VITALS: BP 119/56; TEMP 97.5; O2SAT 97
[2024-08-06] MEDS: AMITRIPTYLINE 25MG TABLET PO SCH (20:16)
[2024-08-06] MEDS: SENNA 8.6 MG TAB (SENOKOT) PO SCH (20:17)
[2024-08-06] MEDS: methocarbamoL 500 MG TAB PO PRN (20:17)
[2024-08-06] MEDS: ACETAMINOPHEN 500 MG TAB PO SCH (20:17)
[2024-08-06] MEDS: DOCUSATE SODIUM 100MG CAPSULE PO SCH (20:17)
[2024-08-06] MEDS: PANTOPRAZOLE 40MG TAB (PROTONIX) PO SCH (20:17)
[2024-08-06] MEDS: GABAPENTIN 300 MG CAP PO SCH (20:17)
[2024-08-06] MEDS: METOPROLOL TART 12.5 MG PER 1/2 TAB PO SCH (20:17)
[2024-08-06] MEDS: HEPARIN SOD (PORCINE) 5000UNITS/ML 1ML VIAL/SYRINGE SC SCH (20:18)
[2024-08-06] MEDS: IPRATROPIUM 0.5MG/ALBUTEROL 2.5MG INH SOL UD 3ML (DUONEB) INH SCH (20:45)
[2024-08-06] MEDS: SYMBICORT 160/4.5MCG INHALER 6GM INH SCH (20:46)
[2024-08-07 04:10] VITALS: BP 111/67; TEMP 97.7; O2SAT 96
[2024-08-07 06:31] LABS: BASO % 0.1 % (0.0-1.0); HEMATOCRIT 25.3 % (36.0-47.0); HEMOGLOBIN 7.8 g/dl (12.0-15.5); LYMPH % 6.7 % (24.0-44.0); MEAN CORPUSCULAR HEMOGLOBIN 21.5 pg (27.0-33.0); MEAN CORPUSCULAR HGB CONC 30.8 g/dl (32.0-36.5); MEAN CORPUSCULAR VOLUME 69.9 fl (80.0-96.0); MONO % 6.4 % (2.0-8.0); NEUTROPHILS % 85.9 % (36.0-66.0); PLATELET COUNT, AUTOMATED 233 10^3/uL (150-450); RED BLOOD COUNT 3.62 10^6/uL (4.00-5.40); WHITE BLOOD COUNT 15.1 10^3/uL (4.0-10.0)
[2024-08-07 06:55] LABS: BLOOD UREA NITROGEN 27 MG/DL (9-23); CALCIUM LEVEL 8.1 MG/DL (8.3-10.6); CARBON DIOXIDE LEVEL 22 MMOL/L (20-31); CHLORIDE LEVEL 107 MMOL/L (98-107); GLOMERULAR FILTRATION RATE > 60.0 (>39); GLUCOSE, FASTING 105 MG/DL (74-106); POTASSIUM SERUM 4.5 MMOL/L (3.5-5.1); SODIUM LEVEL 138 MMOL/L (136-145)
[2024-08-07] MEDS: ATORVASTATIN 20 MG TAB PO SCH (08:33)
[2024-08-07] MEDS: FOLIC ACID 1MG TAB PO SCH (08:33)
[2024-08-07] MEDS: FERROUS SULFATE 325MG TAB PO SCH (08:33)
[2024-08-07] MEDS: predniSONE 20 MG TAB PO SCH (08:34)
[2024-08-07] MEDS: ASPIRIN 81MG ENTERIC TABLET PO SCH (08:34)
[2024-08-07] MEDS: CETIRIZINE (ZyrTEC) 10 MG TAB PO SCH (08:34)
[2024-08-07] MEDS: LIDOCAINE 5% (LIDODERM) PATCH TD SCH (08:35)
[2024-08-07 08:37] LABS: IRON (FE) 119 UG/DL (50-170); PERCENT SATURATION 47.4 % (13.2-45.0); TOTAL IRON BINDING CAPACITY 251 UG/DL (250-425)
[2024-08-07 08:39] LABS: FERRITIN 442.3 NG/ML (7.3-270.7); FOLATE 18.65 NG/ML (>5.4); VITAMIN B12 LEVEL 333 PG/ML (211-911)
[2024-08-07 11:15] LABS: HEMATOCRIT 28.4 % (36.0-47.0); HEMOGLOBIN 8.6 g/dl (12.0-15.5)
[2024-08-07 11:45] VITALS: BP 126/63
[2024-08-07 11:52] VITALS: O2SAT 97
[2024-08-07 12:00] VITALS: BP 117/79; TEMP 97.6; O2SAT 97
[2024-08-07] MEDS ORDERED: MIDODRINE 5 MG TAB PO PRN (14:40)
[2024-08-07] MEDS ORDERED: METOPROLOL TART 25 MG TABLET PO PRN (14:40)
[2024-08-07 19:54] VITALS: BP 119/65; TEMP 98.3; O2SAT 98
[2024-08-07] MEDS: METOPROLOL TART 25 MG TABLET PO SCH (19:58)
[2024-08-08 04:21] VITALS: BP 134/72; TEMP 96.9; O2SAT 98
[2024-08-08 06:37] LABS: BASO % 0.1 % (0.0-1.0); HEMATOCRIT 27.4 % (36.0-47.0); HEMOGLOBIN 8.3 g/dl (12.0-15.5); LYMPH # 1.5 10^3/uL (1.5-5.0); LYMPH % 9.7 % (24.0-44.0); MEAN CORPUSCULAR HEMOGLOBIN 21.4 pg (27.0-33.0); MEAN CORPUSCULAR HGB CONC 30.3 g/dl (32.0-36.5); MEAN CORPUSCULAR VOLUME 70.8 fl (80.0-96.0); MONO # 1.1 10^3/uL (0.0-0.8); NEUTROPHILS # 13.1 10^3/uL (1.5-8.5); NEUTROPHILS % 82.2 % (36.0-66.0); PLATELET COUNT, AUTOMATED 246 10^3/uL (150-450); RED BLOOD COUNT 3.87 10^6/uL (4.00-5.40); WHITE BLOOD COUNT 15.9 10^3/uL (4.0-10.0)
[2024-08-08 06:56] LABS: BLOOD UREA NITROGEN 22 MG/DL (9-23); C REACTIVE PROTEIN QUANTITATIV < 0.50 MG/DL (<1.0); CALCIUM LEVEL 8.4 MG/DL (8.3-10.6); CARBON DIOXIDE LEVEL 25 MMOL/L (20-31); CHLORIDE LEVEL 104 MMOL/L (98-107); CREATININE FOR GFR 0.71 MG/DL (0.55-1.30); GLOMERULAR FILTRATION RATE > 60.0 (>39); GLUCOSE, FASTING 97 MG/DL (74-106); POTASSIUM SERUM 4.5 MMOL/L (3.5-5.1); SODIUM LEVEL 139 MMOL/L (136-145)
[2024-08-08] MEDS: METOPROLOL TART 50 MG TAB PO SCH (08:20)
[2024-08-08 12:00] VITALS: BP 124/79; TEMP 97; O2SAT 99
[2024-08-08] MEDS ORDERED: MIRTAZAPINE 15 MG TAB PO PRN (12:00)
[2024-08-08] MEDS: DICLOFENAC EPOLAMINE 1.3% PATCH TOP ONE (12:38)
[2024-08-08 20:00] VITALS: BP 117/72; TEMP 97.9; O2SAT 95
[2024-08-09] MEDS: CYCLOBENZAPRINE 10MG TABLET PO PRN (03:10)
[2024-08-09 04:55] VITALS: BP 120/66; TEMP 97.5; O2SAT 98
[2024-08-09] MEDS: DICLOFENAC EPOLAMINE 1.3% PATCH TOP SCH (07:00)
[2024-08-09 12:03] VITALS: BP 142/65; TEMP 97.6; O2SAT 95
[2024-08-09 20:00] VITALS: BP 126/69; TEMP 97.9; O2SAT 97
[2024-08-09] MEDS: MIRTAZAPINE 15 MG TAB PO SCH (20:24)
[2024-08-09] MEDS: METOPROLOL TART 12.5 MG PER 1/2 TAB PO PRN (21:34)
[2024-08-09 22:51] VITALS: O2SAT 96
[2024-08-10 04:00] VITALS: BP 121/71; TEMP 97.4; O2SAT 97
[2024-08-10 12:00] VITALS: BP 122/77; TEMP 97.2; O2SAT 100
[2024-08-10 20:00] VITALS: BP 120/59; TEMP 97.1; O2SAT 97
[2024-08-11] VITALS (9 sets, daily range): BP systolic 112–140; BP diastolic 60–74; TEMP 97.2–98.7; O2SAT 95–100
[2024-08-11 07:16] LABS: BASO % 0.1 % (0.0-1.0); HEMATOCRIT 21.2 % (36.0-47.0); LYMPH # 1.5 10^3/uL (1.5-5.0); LYMPH % 8.4 % (24.0-44.0); MEAN CORPUSCULAR HEMOGLOBIN 22.4 pg (27.0-33.0); MEAN CORPUSCULAR HGB CONC 31.1 g/dl (32.0-36.5); MEAN CORPUSCULAR VOLUME 71.9 fl (80.0-96.0); MONO # 1.2 10^3/uL (0.0-0.8); MONO % 6.8 % (2.0-8.0); NEUTROPHILS # 14.8 10^3/uL (1.5-8.5); NEUTROPHILS % 81.4 % (36.0-66.0); PLATELET COUNT, AUTOMATED 235 10^3/uL (150-450); RED BLOOD COUNT 2.95 10^6/uL (4.00-5.40); WHITE BLOOD COUNT 18.2 10^3/uL (4.0-10.0)
[2024-08-11 07:20] LABS: HEMOGLOBIN 6.6 g/dl (12.0-15.5)
[2024-08-11 07:37] LABS: ALBUMIN 2.4 G/DL (3.2-5.2); ALKALINE PHOSPHATASE 58 U/L (35-104); ALT/SGPT 83 U/L (7.0-40); AST/SGOT 41 U/L (<34); BILIRUBIN,TOTAL 0.2 MG/DL (0.3-1.2); BLOOD UREA NITROGEN 28 MG/DL (9-23); CALCIUM LEVEL 8.1 MG/DL (8.3-10.6); CARBON DIOXIDE LEVEL 26 MMOL/L (20-31); CHLORIDE LEVEL 107 MMOL/L (98-107); CREATININE FOR GFR 0.71 MG/DL (0.55-1.30); GLOMERULAR FILTRATION RATE > 60.0 (>39); GLUCOSE, FASTING 84 MG/DL (74-106); MAGNESIUM LEVEL 1.9 MG/DL (1.8-2.4); POTASSIUM SERUM 4.6 MMOL/L (3.5-5.1); SODIUM LEVEL 138 MMOL/L (136-145); TOTAL PROTEIN 4.7 G/DL (5.7-8.2)
[2024-08-11 07:39] LABS: FREE T4 0.77 NG/DL (0.89-1.76); THYROID STIMULATING HORMONE 1.536 uIU/ML (0.55-4.78)
[2024-08-11] MEDS ORDERED: ISOVUE-370 76% 100ML VIAL As Ordered ONE (09:04)
[2024-08-11] MEDS: METOPROLOL TART 50 MG TAB PO SCH (11:38)
[2024-08-11] MEDS: FUROSEMIDE 40MG/4ML VIAL IV ONE (12:06)
[2024-08-11 16:21] LABS: HEMATOCRIT 34.4 % (36.0-47.0); HEMOGLOBIN 10.8 g/dl (12.0-15.5)
[2024-08-11] MEDS: ACETAMINOPHEN 500 MG TAB PO SCH (21:03)
[2024-08-12 04:00] VITALS: BP 114/74; TEMP 98.1; O2SAT 97
[2024-08-12 07:25] LABS: BASO % 0.2 % (0.0-1.0); HEMATOCRIT 32.8 % (36.0-47.0); HEMOGLOBIN 10.4 g/dl (12.0-15.5); LYMPH # 1.8 10^3/uL (1.5-5.0); LYMPH % 11.2 % (24.0-44.0); MEAN CORPUSCULAR HEMOGLOBIN 23.6 pg (27.0-33.0); MEAN CORPUSCULAR HGB CONC 31.7 g/dl (32.0-36.5); MEAN CORPUSCULAR VOLUME 74.4 fl (80.0-96.0); MONO # 0.8 10^3/uL (0.0-0.8); MONO % 4.9 % (2.0-8.0); NEUTROPHILS # 13.3 10^3/uL (1.5-8.5); NEUTROPHILS % 81.1 % (36.0-66.0); PLATELET COUNT, AUTOMATED 211 10^3/uL (150-450); RED BLOOD COUNT 4.41 10^6/uL (4.00-5.40); WHITE BLOOD COUNT 16.4 10^3/uL (4.0-10.0)
[2024-08-12 08:30] LABS: BLOOD UREA NITROGEN 23 MG/DL (9-23); CALCIUM LEVEL 8.5 MG/DL (8.3-10.6); CARBON DIOXIDE LEVEL 28 MMOL/L (20-31); CHLORIDE LEVEL 103 MMOL/L (98-107); CREATININE FOR GFR 0.81 MG/DL (0.55-1.30); GLOMERULAR FILTRATION RATE > 60.0 (>39); GLUCOSE, FASTING 71 MG/DL (74-106); POTASSIUM SERUM 4.5 MMOL/L (3.5-5.1); SODIUM LEVEL 138 MMOL/L (136-145)
[2024-08-12 12:00] VITALS: BP 112/55; TEMP 98; O2SAT 95
[2024-08-12 20:00] VITALS: BP 124/64; TEMP 97.8; O2SAT 98
[2024-08-13 04:00] VITALS: BP 144/87; TEMP 97.3; O2SAT 98
[2024-08-13 05:53] LABS: BASO % 0.1 % (0.0-1.0); HEMATOCRIT 30.2 % (36.0-47.0); HEMOGLOBIN 9.4 g/dl (12.0-15.5); LYMPH # 0.8 10^3/uL (1.5-5.0); LYMPH % 6.3 % (24.0-44.0); MEAN CORPUSCULAR HEMOGLOBIN 23.3 pg (27.0-33.0); MEAN CORPUSCULAR HGB CONC 31.1 g/dl (32.0-36.5); MEAN CORPUSCULAR VOLUME 74.8 fl (80.0-96.0); MONO # 0.8 10^3/uL (0.0-0.8); MONO % 6.6 % (2.0-8.0); NEUTROPHILS # 10.7 10^3/uL (1.5-8.5); NEUTROPHILS % 85.8 % (36.0-66.0); PLATELET COUNT, AUTOMATED 206 10^3/uL (150-450); RED BLOOD COUNT 4.04 10^6/uL (4.00-5.40); WHITE BLOOD COUNT 12.5 10^3/uL (4.0-10.0)
[2024-08-13 12:00] VITALS: BP 111/70; TEMP 98.3; O2SAT 97
[2024-08-13] MEDS ORDERED: PRED20TA PO (15:27)
[2024-08-13] MEDS ORDERED: MIRT-10 PO (15:27)
[2024-08-13] MEDS ORDERED: CYCL10TA20 PO (15:27)
[2024-08-13] MEDS ORDERED: MECL-86 PO (15:27)
[2024-08-13] MEDS ORDERED: SYMB16INH INH (15:27)
[2024-08-13] MEDS ORDERED: LOPR1TAB6 PO (15:27)
[2024-08-13 20:00] VITALS: BP 131/73; TEMP 97.1; O2SAT 98
[2024-08-14 04:00] VITALS: BP 112/68; TEMP 96.8; O2SAT 95
[2024-08-14 05:48] VITALS: BP 112/68
== END 2024-08-14 11:15 | disposition home health service (06) | DRG 69 ==
LOC: M PM&R 15:20
PROVIDERS: ADMIT Physical Medicine & Rehabilitation; ATTEND Physical Medicine & Rehabilitation
DX: I67.82 Cerebral ischemia (principal); J96.10 Chronic respiratory failure, unspecified whether with hypoxia or hypercapnia; B37.0 Candidal stomatitis; Q60.3 Renal hypoplasia, unilateral; G31.9 Degenerative disease of nervous system, unspecified; Z66 Do not resuscitate; I95.1 Orthostatic hypotension; Z99.81 Dependence on supplemental oxygen; J44.9 Chronic obstructive pulmonary disease, unspecified; I25.10 Atherosclerotic heart disease of native coronary artery without angina pectoris; E78.5 Hyperlipidemia, unspecified; G43.909 Migraine, unspecified, not intractable, without status migrainosus; M54.50 Low back pain, unspecified; G62.9 Polyneuropathy, unspecified; K21.9 Gastro-esophageal reflux disease without esophagitis; Z86.73 Personal history of transient ischemic attack (TIA), and cerebral infarction without residual deficits; I10 Essential (primary) hypertension; D50.9 Iron deficiency anemia, unspecified; Z87.891 Personal history of nicotine dependence; M70.71 Other bursitis of hip, right hip; K29.70 Gastritis, unspecified, without bleeding; R00.0 Tachycardia, unspecified; G47.00 Insomnia, unspecified; Z79.899 Other long term (current) drug therapy; Z79.82 Long term (current) use of aspirin; Z79.52 Long term (current) use of systemic steroids; D72.829 Elevated white blood cell count, unspecified; M16.0 Bilateral primary osteoarthritis of hip; R29.6 Repeated falls

== ENCOUNTER 2024-08-29 07:32 | Outpatient (CLI) | payer MEDICARE ==
[~2024-08-29 07:32] MED LIST changes: +CYCL10TA20 PO; +LOPR1TAB6 PO; +MIRT-10 PO; +SYMB16INH INH
[2024-08-29 08:05] VITALS: BP 128/64; O2SAT 98
[2024-08-29] MEDS: IRON SUCROSE 300 MG in NS 250 ML OVER 90 MIN. IV ONE (08:28)
[2024-08-29 10:05] VITALS: BP 124/76; O2SAT 90
== END 2024-08-29 10:05 ==
LOC: M INFU 07:32
PROVIDERS: ATTEND Nurse Practitioner Women's Health
DX: D50.9 Iron deficiency anemia, unspecified (principal)
CPT/HCPCS: 96365; 96366; J1756

== ENCOUNTER → 2024-09-04 | Outpatient (REF) | payer MEDICARE ==
[2024-09-04 14:05] LABS: CHOLESTEROL RISK RATIO 3.67 (<5); HDL CHOLESTEROL 46.2 MG/DL (>40); LDL CHOLESTEROL 87.6 MG/DL (<100); NON-HDL-C 123.8 MG/DL
== END ==
LOC: M SHH 13:09
PROVIDERS: ATTEND Physician Assistant
DX: I25.10 Atherosclerotic heart disease of native coronary artery without angina pectoris (principal); E78.00 Pure hypercholesterolemia, unspecified

== ENCOUNTER → 2024-09-04 | Outpatient (REF) | payer MEDICARE ==
[2024-09-04 13:58] LABS: BASO % 0.1 % (0.0-1.0); HEMATOCRIT 41.6 % (36.0-47.0); HEMOGLOBIN 12.4 g/dl (12.0-15.5); LYMPH # 1.3 10^3/uL (1.5-5.0); MEAN CORPUSCULAR HEMOGLOBIN 24.6 pg (27.0-33.0); MEAN CORPUSCULAR HGB CONC 29.8 g/dl (32.0-36.5); MEAN CORPUSCULAR VOLUME 82.4 fl (80.0-96.0); MONO # 1.1 10^3/uL (0.0-0.8); MONO % 7.6 % (2.0-8.0); NEUTROPHILS # 11.4 10^3/uL (1.5-8.5); NEUTROPHILS % 81.8 % (36.0-66.0); PLATELET COUNT, AUTOMATED 425 10^3/uL (150-450); RED BLOOD COUNT 5.05 10^6/uL (4.00-5.40); WHITE BLOOD COUNT 13.9 10^3/uL (4.0-10.0)
[2024-09-04 14:20] LABS: ALBUMIN 3.8 G/DL (3.2-5.2); ALKALINE PHOSPHATASE 90 U/L (35-104); ALT/SGPT 33 U/L (7.0-40); AST/SGOT 23 U/L (<34); BILIRUBIN,TOTAL 0.2 MG/DL (0.3-1.2); BLOOD UREA NITROGEN 22 MG/DL (9-23); CALCIUM LEVEL 9.2 MG/DL (8.3-10.6); CARBON DIOXIDE LEVEL 26 MMOL/L (20-31); CHLORIDE LEVEL 105 MMOL/L (98-107); CREATININE FOR GFR 0.71 MG/DL (0.55-1.30); GLOMERULAR FILTRATION RATE > 90.0 (>39); GLUCOSE, FASTING 92 MG/DL (74-106); IRON (FE) 64 UG/DL (50-170); PERCENT SATURATION 22.7 % (13.2-45.0); POTASSIUM SERUM 4.9 MMOL/L (3.5-5.1); SODIUM LEVEL 140 MMOL/L (136-145); TOTAL IRON BINDING CAPACITY 282 UG/DL (250-425); TOTAL PROTEIN 7.1 G/DL (5.7-8.2)
[2024-09-04 14:21] LABS: FOLATE > 24.0 NG/ML (>5.4)
[2024-09-04 14:22] LABS: FERRITIN 372.2 NG/ML (7.3-270.7); VITAMIN B12 LEVEL 341 PG/ML (211-911)
== END ==
LOC: M SHH 13:07
PROVIDERS: ATTEND Internal Medicine Hematology & Oncology
DX: D50.9 Iron deficiency anemia, unspecified (principal); I25.10 Atherosclerotic heart disease of native coronary artery without angina pectoris; E78.00 Pure hypercholesterolemia, unspecified; Z79.899 Other long term (current) drug therapy

== ENCOUNTER → 2024-09-30 | Outpatient (CLI) | payer MEDICARE | LOC: M WHC 14:40 | PROVIDERS: ATTEND Family Medicine | DX: Z12.31 Encounter for screening mammogram for malignant neoplasm of breast (principal); R92.313 Mammographic fatty tissue density, bilateral breasts; Z00.00 Encounter for general adult medical examination without abnormal findings; E78.5 Hyperlipidemia, unspecified; D64.9 Anemia, unspecified; I10 Essential (primary) hypertension ==

== ENCOUNTER → 2024-09-30 | Outpatient (REF) | payer MEDICARE ==
[2024-09-30 13:14] LABS: CREATININE, URINE 128.8 MG/DL
[2024-09-30 13:15] LABS: MAU/CREAT RATIO 3.1 MCG/MG (0.0-30.0)
== END ==
LOC: M SFHCLERA 11:34
PROVIDERS: ATTEND Family Medicine
DX: Z00.00 Encounter for general adult medical examination without abnormal findings (principal); E78.5 Hyperlipidemia, unspecified; D64.9 Anemia, unspecified; I10 Essential (primary) hypertension

== ENCOUNTER → 2025-01-27 | Outpatient (CLI) | payer MEDICARE ==
[2025-01-27 14:50] LABS: BASO # 0.0 10^3/uL (0.0-0.2); BASO % 0.1 % (0.0-1.0); EOS # 0.0 10^3/uL (0.0-0.5); EOS % 0.0 % (0.0-3.0); LYMPH # 1.2 10^3/uL (1.5-5.0); LYMPH % 16.0 % (24.0-44.0); MONO # 0.7 10^3/uL (0.0-0.8); MONO % 8.7 % (2.0-8.0); NEUTROPHILS # 5.7 10^3/uL (1.5-8.5); NEUTROPHILS % 74.8 % (36.0-66.0); PLATELET COUNT, AUTOMATED 302 10^3/uL (150-450)
== END ==
LOC: M LAB 14:06
PROVIDERS: ATTEND Internal Medicine Gastroenterology
DX: Z87.11 Personal history of peptic ulcer disease (principal)

== ENCOUNTER → 2025-01-29 | Outpatient (CLI) | payer MEDICARE | LOC: M RAD 13:15 | PROVIDERS: ATTEND Family Medicine | DX: M54.12 Radiculopathy, cervical region (principal) ==

== ENCOUNTER → 2025-03-20 | Outpatient (CLI) | payer MEDICARE | LOC: M PLARAD 09:44 | PROVIDERS: ATTEND Family Medicine | DX: M48.02 Spinal stenosis, cervical region (principal); M47.22 Other spondylosis with radiculopathy, cervical region ==